=== PATIENT | male | born 1980 | race Caucasian/White ===

== ENCOUNTER 2016-11-27 00:23 | Inpatient (IN) | payer OTHER ==
[~2016-11-27] VITALS: Ht 185.4 cm; Wt 86.3 kg
[2016-11-27 02:00] LABS: BASOPHILS # (AUTO) 0.07 K/uL (0.00-0.20); BASOPHILS % (AUTO) 0.5 % (0.0-2.0); EOSINOPHILS # (AUTO) 0.06 K/uL (0.00-0.70); EOSINOPHILS % (AUTO) 0.48 % (1.0-6.0); HEMOGLOBIN 12.2 g/dL (13.5-17.5); LYMPHOCYTES # (AUTO) 1.4 K/uL (1.0-4.8); LYMPHOCYTES % (AUTO) 10.8 % (22.0-44.0); MEAN CORPUSCULAR HEMOGLOBIN 28.3 pg (26.0-34.0); MEAN CORPUSCULAR HGB CONC 32.9 G/dL (31.0-37.0); MEAN CORPUSCULAR VOLUME 86 fL (80-100); MONOCYTES # (AUTO) 0.6 K/uL (0.1-1.0); MONOCYTES % (AUTO) 4.8 % (2.0-9.0); NEUTROPHILS # (AUTO) 10.5 K/uL (1.8-7.7); NEUTROPHILS % (AUTO) 83.4 % (40.0-70.0); PLATELET COUNT (AUTO) 241 K/uL (150-450); RED CELL DISTRIBUTION WIDTH 13.2 % (11.5-14.5); WHITE BLOOD COUNT (AUTO) 12.5 K/uL (4.5-11.0)
[2016-11-27 02:07] LABS: ANION GAP 7 mmol/L (8-16); CALCIUM, TOTAL 9.4 mg/dL (8.8-10.5); CARBON DIOXIDE 29 mmol/L (22-29); CHLORIDE 100 mmol/L (98-107); CREATININE 1.08 mg/dL (0.60-1.30); GLOMERULAR FILTR. RATE CALC > 60 mL/min (>60); SODIUM SERUM 136 mmol/L (136-145); UREA NITROGEN, BLOOD 19 mg/dL (7-18)
[2016-11-27 02:12] LABS: ALANINE AMINOTRANSFERASE 35 U/L (12-78); ALBUMIN 3.6 g/dL (3.4-5.0); ASPARTATE AMINOTRANSFERASE 21 U/L (15-37); BILIRUBIN,TOTAL 0.6 mg/dL (0.1-1.0)
[2016-11-27 02:31] LABS: LACTIC ACID 1.3 mmol/L (0.4-2.0)
[2016-11-27] MEDS ORDERED: HYDROmorphone 2 MG/ML SYRINGE IVP ONE (03:45)
[2016-11-27] MEDS ORDERED: VANCOMYCIN HCL 1 GM/D5% WATER 200 ML IV ONE ×2 (03:45→10:00)
[2016-11-27] MEDS ORDERED: ONDANSETRON HCL 4 MG/2 ML VIAL IVP ONE ×2 (03:45→12:00)
[2016-11-27] MEDS ORDERED: LORazepam 2 MG/ML VIAL IVP ONE (04:45)
[2016-11-27] MEDS ORDERED: 0.9% SODIUM CHLORIDE 10 ML SYRINGE IVP PRN (05:30)
[2016-11-27] MEDS ORDERED: POTASSIUM CHL 20 MEQ/D5-0.45NS 1,000 ML IV ONE (05:30)
[2016-11-27] MEDS ORDERED: ONDANSETRON HCL 4 MG/2 ML VIAL IVP PRN ×3 (05:30→13:15)
[2016-11-27] MEDS ORDERED: SODIUM CHLORIDE 0.9% 100 ML ONE (05:31)
[2016-11-27] MEDS ORDERED: IOVERSOL 350 MG/ML 100 ML VIAL ONE (05:31)
[2016-11-27] MEDS ORDERED: IPRATROPIUM BROMIDE 0.5 MG/2.5 ML NEB SOLUTION NEB PRN (09:15)
[2016-11-27] MEDS ORDERED: ZOLPIDEM TARTRATE 5 MG TABLET PO PRN (09:15)
[2016-11-27] MEDS ORDERED: HYDROCODONE/ACETAMINOPHEN 5-325 MG TABLET PO PRN (09:15)
[2016-11-27] MEDS ORDERED: ALBUTEROL SULFATE 2.5 MG/0.5 ML NEB SOLUTION NEB PRN ×2 (09:15→13:15)
[2016-11-27] MEDS ORDERED: BISACODYL 10 MG RECTAL RECTAL SUPPOSITORY PR PRN ×2 (09:15→13:15)
[2016-11-27] MEDS ORDERED: MORPHINE SULFATE 4 MG/ML SYRINGE IVP PRN (09:15)
[2016-11-27] MEDS ORDERED: MAGNESIUM HYDROXIDE SUSPENSION 30 ML UDCUP PO PRN ×2 (09:15→13:15)
[2016-11-27] MEDS ORDERED: ACETAMINOPHEN 325 MG TABLET PO PRN ×2 (09:15→13:15)
[2016-11-27] MEDS ORDERED: RINGERS SOLUTION,LACTATED 1,000 ML IV ONE (09:45)
[2016-11-27] MEDS ORDERED: SODIUM CHLORIDE 0.9% 1,000 ML IV ONE ×2 (09:45→13:15)
[2016-11-27 09:48] VITALS: BP 130/90
[2016-11-27] MEDS ORDERED: FentaNYL CITRATE-PF 100 MCG/2 ML VIAL IVP ONE (12:00)
[2016-11-27] MEDS ORDERED: METOCLOPRAMIDE HCL 5 MG/ML 2 ML VIAL IVP ONE (12:00)
[2016-11-27] MEDS ORDERED: DEXAMETHASONE SOD PHOS 4 MG/ML VIAL IVP ONE (12:00)
[2016-11-27] MEDS ORDERED: NEOSTIGMINE METHYLSULFATE 1 MG/ML 10 ML VIAL IVP ONE (12:00)
[2016-11-27] MEDS ORDERED: PHENYLEPHRINE HCL 10 MG/ML VIAL IVP ONE (12:00)
[2016-11-27] MEDS ORDERED: LIDOCAINE HCL/PF 2% 5 ML VIAL INJ ONE (12:00)
[2016-11-27] MEDS ORDERED: MIDAZOLAM HCL 2 MG/2 ML VIAL IVP ONE (12:00)
[2016-11-27] MEDS ORDERED: SUCCINYLCHOLINE CHLORIDE 20 MG/ML 10 ML VIAL IVP ONE (12:00)
[2016-11-27 12:49] VITALS: BP 125/85
[2016-11-27 15:50] VITALS: BP 106/55
[2016-11-27] MEDS: OxyCODONE HCL/ACETAMINOPHEN 5-325 MG TABLET PO PRN ×2 (16:36→16:41)
[2016-11-27] MEDS: HEPARIN SODIUM,PORCINE 5,000 UNITS/ML VIAL SQ SCH (16:37)
[2016-11-27] MEDS: MORPHINE SULFATE 2 MG/ML SYRINGE IVP PRN ×2 (16:40→20:30)
[2016-11-27 20:02] VITALS: BP 131/76
[2016-11-27] MEDS: DOCUSATE SODIUM 100 MG CAPSULE PO SCH (20:30)
[2016-11-27] MEDS ORDERED: DOCUSATE SODIUM 100 MG CAPSULE PO SCH (21:00)
[2016-11-27 23:52] VITALS: BP 131/75
[2016-11-28] MEDS: HEPARIN SODIUM,PORCINE 5,000 UNITS/ML VIAL SQ SCH ×3 (00:41→16:13)
[2016-11-28] MEDS: MORPHINE SULFATE 2 MG/ML SYRINGE IVP PRN ×3 (00:41→22:01)
[2016-11-28 05:40] VITALS: BP 137/85
[2016-11-28 06:38] LABS: BASOPHILS % (AUTO) 0.3 % (0.0-2.0); EOSINOPHILS % (AUTO) 0.4 % (1.0-6.0); HEMATOCRIT 32.7 % (41-53); HEMOGLOBIN 10.9 g/dL (13.5-17.5); LYMPHOCYTES # (AUTO) 1.7 K/uL (1.0-4.8); LYMPHOCYTES % (AUTO) 15.1 % (22.0-44.0); MEAN CORPUSCULAR HEMOGLOBIN 28.9 pg (26.0-34.0); MEAN CORPUSCULAR HGB CONC 33.3 G/dL (31.0-37.0); MEAN CORPUSCULAR VOLUME 87 fL (80-100); MONOCYTES # (AUTO) 0.9 K/uL (0.1-1.0); MONOCYTES % (AUTO) 7.3 % (2.0-9.0); NEUTROPHILS # (AUTO) 8.9 K/uL (1.8-7.7); NEUTROPHILS % (AUTO) 76.9 % (40.0-70.0); PLATELET COUNT (AUTO) 279 K/uL (150-450); RED BLOOD CELL COUNT(AUTO) 3.77 MIL/uL (4.50-5.90); RED CELL DISTRIBUTION WIDTH 13.3 % (11.5-14.5); WHITE BLOOD COUNT (AUTO) 11.6 K/uL (4.5-11.0)
[2016-11-28 06:54] LABS: ANION GAP 7 mmol/L (8-16); CALCIUM, TOTAL 8.8 mg/dL (8.8-10.5); CARBON DIOXIDE 29 mmol/L (22-29); CHLORIDE 101 mmol/L (98-107); CREATININE 0.99 mg/dL (0.60-1.30); GLOMERULAR FILTR. RATE CALC > 60 mL/min (>60); POTASSIUM 3.8 mmol/L (3.5-5.1); SODIUM SERUM 137 mmol/L (136-145); UREA NITROGEN, BLOOD 13 mg/dL (7-18)
[2016-11-28 07:10] VITALS: BP 149/90
[2016-11-28] MEDS: OxyCODONE HCL/ACETAMINOPHEN 5-325 MG TABLET PO PRN ×3 (08:04→19:42)
[2016-11-28] MEDS: DOCUSATE SODIUM 100 MG CAPSULE PO SCH ×2 (08:04→20:32)
[2016-11-28] MEDS: PANTOPRAZOLE SODIUM 40 MG DR TABLET PO SCH (08:05)
[2016-11-28] MEDS ORDERED: PANTOPRAZOLE SODIUM 40 MG/VIAL IVP SCH (09:00)
[2016-11-28] MEDS ORDERED: VANCOMYCIN HCL 1.5 GM in DEXTROSE 5%-WATER 250 ML IV ONE (12:00)
[2016-11-28 15:20] VITALS: BP 136/77
[2016-11-28 20:25] VITALS: BP 119/78
[2016-11-28] MEDS: VANCOMYCIN HCL 1.25 GM in DEXTROSE 5%-WATER 250 ML IV SCH (22:54)
[2016-11-29 00:26] VITALS: BP 128/83
[2016-11-29 04:35] VITALS: BP 117/66
[2016-11-29 06:42] LABS: ANION GAP 7 mmol/L (8-16); CALCIUM, TOTAL 8.3 mg/dL (8.8-10.5); CARBON DIOXIDE 29 mmol/L (22-29); CHLORIDE 105 mmol/L (98-107); CREATININE 1.02 mg/dL (0.60-1.30); GLOMERULAR FILTR. RATE CALC > 60 mL/min (>60); POTASSIUM 3.8 mmol/L (3.5-5.1); SODIUM SERUM 141 mmol/L (136-145); UREA NITROGEN, BLOOD 15 mg/dL (7-18)
[2016-11-29] MEDS: VANCOMYCIN HCL 1.25 GM in DEXTROSE 5%-WATER 250 ML IV SCH (06:44)
[2016-11-29 08:01] VITALS: BP 121/73
[2016-11-29] MEDS: HEPARIN SODIUM,PORCINE 5,000 UNITS/ML VIAL SQ SCH ×2 (08:19)
[2016-11-29] MEDS: DOCUSATE SODIUM 100 MG CAPSULE PO SCH (08:19)
[2016-11-29] MEDS: PANTOPRAZOLE SODIUM 40 MG DR TABLET PO SCH (08:19)
[2016-11-29] MEDS: OxyCODONE HCL/ACETAMINOPHEN 5-325 MG TABLET PO PRN (08:20)
[2016-11-29] MEDS ORDERED: KEFLEX PO (10:56)
[2016-11-29] MEDS ORDERED: CEPH500 PO (11:01)
[2016-11-29] MEDS ORDERED: BACTDSB PO (11:02)
[2016-11-29] MEDS ORDERED: TRAM50TA4 PO (11:03)
== END 2016-11-29 13:30 | disposition home or self-care (01) | DRG 364 ==
LOC: EMS 00:24 → 6N 05:31
PROVIDERS: ADMIT Hospitalist; ATTEND Hospitalist
PROC: 02HV33Z Insertion of Infusion Device into Superior Vena Cava, Percutaneous Approach (ICD-10-PCS; 2016-11-27)
PROC: 0J940ZZ Drainage of Right Neck Subcutaneous Tissue and Fascia, Open Approach (ICD-10-PCS; principal; 2016-11-27 09:50)
DX: L02.11 Cutaneous abscess of neck (principal); F11.10 Opioid abuse, uncomplicated; L03.221 Cellulitis of neck; F17.210 Nicotine dependence, cigarettes, uncomplicated; F15.10 Other stimulant abuse, uncomplicated; F12.10 Cannabis abuse, uncomplicated
CPT/HCPCS: 72126; 83605; 87040; 87070; 87081; 87205; G0480; J0330; J1100; J1170; J1644; J2060; J2250; J2270; J2370; J2405; J2765; J3010; J3370; J3480; J3490; J7030; J7050; J7060; J7120

== ENCOUNTER 2018-07-11 08:12 | Inpatient (IN) | payer MEDICAID ==
[~2018-07-11] VITALS: Ht 185.4 cm; Wt 83.9 kg
[~2018-07-11 08:12] MED LIST: BACTDSB PO; CEPH500 PO; KEFLEX PO; TRAM50TA4 PO
[2018-07-11] MEDS ORDERED: 0.9% SODIUM CHLORIDE 10 ML SYRINGE IVP PRN (09:30)
[2018-07-11] MEDS ORDERED: PIPERACILLIN/TAZO 3.375 GM/D5W 50 ML IV ONE (10:15)
[2018-07-11] MEDS ORDERED: HYDROCODONE/ACETAMINOPHEN 5-325 MG TABLET PO ONE ×2 (10:15→13:15)
[2018-07-11] MEDS ORDERED: KETOROLAC TROMETHAMINE 30 MG/ML VIAL IVP ONE (10:15)
[2018-07-11] MEDS ORDERED: VANCOMYCIN HCL 1 GM/D5% WATER 200 ML IV ONE (10:15)
[2018-07-11] MEDS ORDERED: IOVERSOL 350 MG/ML 150 ML VIAL ONE (10:17)
[2018-07-11] MEDS ORDERED: SODIUM CHLORIDE 0.9% 100 ML ONE (10:18)
[2018-07-11] MEDS ORDERED: IOVERSOL 350 MG/ML 100 ML VIAL ONE ×2 (10:19→11:39)
[2018-07-11 10:27] LABS: BASOPHILS % (AUTO) 0.2 % (0.0-2.0); EOSINOPHILS % (AUTO) 0.1 % (1.0-6.0); HEMATOCRIT 36.6 % (41-53); HEMOGLOBIN 12.2 g/dL (13.5-17.5); MEAN CORPUSCULAR HEMOGLOBIN 27.6 pg (26.0-34.0); MEAN CORPUSCULAR HGB CONC 33.4 G/dL (31.0-37.0); MEAN CORPUSCULAR VOLUME 83 fL (80-100); MONOCYTES # (AUTO) 1.7 K/uL (0.1-1.0); MONOCYTES % (AUTO) 10.2 % (2.0-9.0); NEUTROPHILS # (AUTO) 14.3 K/uL (1.8-7.7); NEUTROPHILS % (AUTO) 83.5 % (40.0-70.0); PLATELET COUNT (AUTO) 201 K/uL (150-450); RED BLOOD CELL COUNT(AUTO) 4.43 MIL/uL (4.50-5.90); RED CELL DISTRIBUTION WIDTH 14.7 % (11.5-14.5)
[2018-07-11 10:38] LABS: PROTHROMBIN TIME 10.8 SEC (9.4-11.6)
[2018-07-11 10:46] LABS: LACTIC ACID 1.6 mmol/L (0.4-2.0)
[2018-07-11 10:51] LABS: B-TYPE NATRIURETIC PEPTIDE 10 pg/mL (0-100)
[2018-07-11 11:01] LABS: ALKALINE PHOSPHATASE 88 U/L (46-116); ASPARTATE AMINOTRANSFERASE 156 U/L (15-37); BILIRUBIN,TOTAL 0.9 mg/dL (0.1-1.0); CALCIUM, TOTAL 8.8 mg/dL (8.8-10.5); CREATININE 1.24 mg/dL (0.60-1.30); GLOMERULAR FILTR. RATE CALC > 60 mL/min (>60); GLUCOSE,RANDOM 114 mg/dL (70-110); TOTAL PROTEIN, SERUM 7.3 g/dL (6.4-8.2); UREA NITROGEN, BLOOD 21 mg/dL (7-18)
[2018-07-11 11:36] LABS: APPEARANCE,URINE CLOUDY (CLEAR); GLUCOSE, URINE (UA) NEGATIVE (NEGATIVE); KETONES,URINE NEGATIVE (NEGATIVE); LEUKOCYTE ESTERASE ,URINE TRACE (NEGATIVE); NITRATE,URINE NEGATIVE (NEGATIVE); OCCULT BLOOD,URINE MODERATE (NEGATIVE); PROTEIN,URINE SEE CONFIRM (NEGATIVE)
[2018-07-11 11:39] LABS: BILIRUBIN,URINE PRELIM. POSITIVE (NEGATIVE)
[2018-07-11 11:48] LABS: SULFOSALICYLIC ACID,URINE 1+ (Negative)
[2018-07-11 11:51] LABS: BACTERIA,URINE Few /HPF (None Seen); SQUAMOUS EPITHELIAL CELL,UR Few /LPF (None Seen)
[2018-07-11 12:20] LABS: ALANINE AMINOTRANSFERASE 67 U/L (12-78); CARBON DIOXIDE 26 mmol/L (22-29); CHLORIDE 90 mmol/L (98-107); CREATINE KINASE, TOTAL ONLY 1683 U/L (39-308); POTASSIUM 4.4 mmol/L (3.5-5.1)
[2018-07-11 12:21] LABS: ALBUMIN 2.1 g/dL (3.4-5.0); ANION GAP 8 mmol/L (8-16)
[2018-07-11 12:24] LABS: SODIUM SERUM 124 mmol/L (136-145)
[2018-07-11] MEDS ORDERED: SODIUM CHLORIDE 0.9% 1,000 ML IV ONE (12:30)
[2018-07-11] MEDS ORDERED: MAGNESIUM HYDROXIDE SUSPENSION 30 ML UDCUP PO PRN (14:15)
[2018-07-11] MEDS ORDERED: ONDANSETRON HCL 4 MG/2 ML VIAL IVP PRN (14:15)
[2018-07-11] MEDS: SODIUM CHLORIDE 0.9% 1,000 ML IV SCH ×2 (14:24→22:30)
[2018-07-11] MEDS ORDERED: VANCOMYCIN HCL 500 MG in DEXTROSE 5%-WATER 100 ML IV ONE (14:30)
[2018-07-11] MEDS: PIPERACILLIN/TAZO 3.375 GM/D5W 50 ML IV SCH ×2 (15:14→21:22)
[2018-07-11 17:40] VITALS: BP 96/63
[2018-07-11 19:50] VITALS: BP 116/48
[2018-07-11] MEDS ORDERED: DOCUSATE SODIUM 100 MG CAPSULE PO SCH (21:00)
[2018-07-11] MEDS: ACETAMINOPHEN 325 MG TABLET PO PRN (21:22)
[2018-07-11] MEDS: MORPHINE SULFATE 4 MG/ML SYRINGE IVP PRN (22:35)
[2018-07-11] MEDS ORDERED: VANCOMYCIN HCL 1.25 GM in DEXTROSE 5%-WATER 250 ML IV ONE (23:00)
[2018-07-11 23:59] VITALS: BP 94/54
[2018-07-12] MEDS: PIPERACILLIN/TAZO 3.375 GM/D5W 50 ML IV SCH ×3 (03:06→15:39)
[2018-07-12] MEDS: MORPHINE SULFATE 4 MG/ML SYRINGE IVP PRN ×2 (03:16→15:51)
[2018-07-12 03:30] VITALS: BP 114/65
[2018-07-12] MEDS ORDERED: RINGERS SOLUTION,LACTATED 1,000 ML IV ONE ×2 (05:48→06:00)
[2018-07-12] MEDS ORDERED: ACETAMINOPHEN 1000 MG/ISO-OSM 100 ML IV ONE (06:37)
[2018-07-12] MEDS ORDERED: BUPIVACAINE HCL/PF 0.5% 30 ML VIAL ONE (06:37)
[2018-07-12] MEDS ORDERED: DEXAMETHASONE SOD PHOS 4 MG/ML VIAL ONE (06:37)
[2018-07-12] MEDS ORDERED: SODIUM CL IRRIG SOLN BAG 3,000 ML IRRIG ONE (06:46)
[2018-07-12] MEDS ORDERED: BENZOCAINE/MENTHOL LOZENGE PO PRN (07:30)
[2018-07-12] MEDS ORDERED: DiphenhydrAMINE HCL 50 MG/ML VIAL IVP PRN (07:30)
[2018-07-12] MEDS ORDERED: MAG HYDROX/AL HYDROX/SIMETH 30 ML SUSP UDCUP PO PRN (07:30)
[2018-07-12] MEDS ORDERED: VANCOMYCIN HCL 1.25 GM in DEXTROSE 5%-WATER 250 ML IV ONE (08:00)
[2018-07-12] MEDS ORDERED: MEPERIDINE-PF 25 MG/ML VIAL IVP PRN (08:30)
[2018-07-12] MEDS ORDERED: HYDROmorphone 2 MG/ML SYRINGE IVP PRN (08:30)
[2018-07-12] MEDS ORDERED: FentaNYL CITRATE-PF 100 MCG/2 ML VIAL IVP PRN (08:30)
[2018-07-12] MEDS ORDERED: ACETAMINOPHEN 1000 MG/ISO-OSM 100 ML IV PRN (09:00)
[2018-07-12] MEDS: OxyCODONE HCL/ACETAMINOPHEN 10-325 MG TABLET PO PRN ×3 (09:16→22:47)
[2018-07-12] MEDS: PANTOPRAZOLE SODIUM 40 MG DR TABLET PO SCH (09:16)
[2018-07-12] MEDS: DOCUSATE SODIUM 100 MG CAPSULE PO SCH ×2 (09:16→20:12)
[2018-07-12 10:12] VITALS: BP 139/71
[2018-07-12] MEDS: SODIUM CHLORIDE 0.9% 1,000 ML IV SCH (11:43)
[2018-07-12 11:46] VITALS: BP 125/78
[2018-07-12] MEDS: ACETAMINOPHEN 500 MG TABLET PO SCH ×2 (13:30→20:13)
[2018-07-12 14:42] VITALS: BP 142/89
[2018-07-12 15:52] VITALS: BP 96/66
[2018-07-12] MEDS: KETOROLAC TROMETHAMINE 30 MG/ML VIAL IVP SCH (17:16)
[2018-07-12 19:47] VITALS: BP 99/59
[2018-07-12] MEDS: CYCLOBENZAPRINE HCL 10 MG TABLET PO PRN (20:12)
[2018-07-12] MEDS: VANCOMYCIN HCL 1.25 GM in DEXTROSE 5%-WATER 250 ML IV SCH (20:13)
[2018-07-13] VITALS (7 sets, daily range): BP systolic 99–126; BP diastolic 49–60
[2018-07-13] MEDS: PIPERACILLIN/TAZO 3.375 GM/D5W 50 ML IV SCH ×5 (00:45→22:04)
[2018-07-13] MEDS: SODIUM CHLORIDE 0.9% 1,000 ML IV SCH ×2 (00:46→06:15)
[2018-07-13] MEDS: KETOROLAC TROMETHAMINE 30 MG/ML VIAL IVP SCH ×5 (01:16→23:35)
[2018-07-13] MEDS: ACETAMINOPHEN 500 MG TABLET PO SCH ×4 (01:30→17:49)
[2018-07-13] MEDS ORDERED: DEXAMETHASONE SOD PHOS 4 MG/ML VIAL IVP ONE (05:22)
[2018-07-13] MEDS ORDERED: PROPOFOL 1% 20 ML VIAL IVP ONE (05:22)
[2018-07-13] MEDS ORDERED: KETOROLAC TROMETHAMINE 60 MG/2 ML VIAL IM ONE (05:22)
[2018-07-13] MEDS ORDERED: KETAMINE HCL 50 MG/ML 10 ML VIAL IVP ONE (05:22)
[2018-07-13] MEDS ORDERED: ONDANSETRON HCL 4 MG/2 ML VIAL IVP ONE (05:22)
[2018-07-13] MEDS ORDERED: MIDAZOLAM HCL 2 MG/2 ML VIAL IVP ONE (05:22)
[2018-07-13] MEDS ORDERED: LIDOCAINE/PF 2% 5 ML VIAL IM ONE (05:22)
[2018-07-13] MEDS: OxyCODONE HCL/ACETAMINOPHEN 10-325 MG TABLET PO PRN ×2 (05:36→10:09)
[2018-07-13] MEDS: VANCOMYCIN HCL 1.25 GM in DEXTROSE 5%-WATER 250 ML IV SCH ×2 (10:09→20:25)
[2018-07-13] MEDS: PANTOPRAZOLE SODIUM 40 MG DR TABLET PO SCH (10:09)
[2018-07-13] MEDS: DOCUSATE SODIUM 100 MG CAPSULE PO SCH ×2 (10:09→20:25)
[2018-07-13] MEDS: MORPHINE SULFATE 4 MG/ML SYRINGE IVP PRN ×2 (11:32→17:08)
[2018-07-13] MEDS ORDERED: SODIUM CHLORIDE 0.9% 1,000 ML IV ONE (11:45)
[2018-07-13 14:50] LABS: ANION GAP 7 mmol/L (8-16); CALCIUM, TOTAL 8.2 mg/dL (8.8-10.5); CARBON DIOXIDE 26 mmol/L (22-29); CHLORIDE 100 mmol/L (98-107); CREATININE 1.24 mg/dL (0.60-1.30); GLOMERULAR FILTR. RATE CALC > 60 mL/min (>60); GLUCOSE,RANDOM 202 mg/dL (70-110); POTASSIUM 3.5 mmol/L (3.5-5.1); SODIUM SERUM 133 mmol/L (136-145); UREA NITROGEN, BLOOD 30 mg/dL (7-18)
[2018-07-13] MEDS ORDERED: SODIUM BICARBONATE 75 MEQ in SODIUM CHLORIDE 0.45% 1,000 ML IV SCH (15:00)
[2018-07-13 18:15] LABS: CREATININE,URINE RANDOM 99.3 mg/dL (30.0-125.0); PROTEIN,URINE RANDOM 46 mg/dL (0-11.9)
[2018-07-13 18:20] LABS: SODIUM,URINE RANDOM < 5 mmol/l (20-110)
[2018-07-13 18:21] LABS: OSMOLALITY,URINE 660 mOS/kg (50-1200)
[2018-07-13 18:28] LABS: APPEARANCE,URINE CLEAR (CLEAR); GLUCOSE, URINE (UA) 100 mg/dL (NEGATIVE); KETONES,URINE NEGATIVE (NEGATIVE); LEUKOCYTE ESTERASE ,URINE NEGATIVE (NEGATIVE); NITRATE,URINE NEGATIVE (NEGATIVE); OCCULT BLOOD,URINE NEGATIVE (NEGATIVE); PH,URINE 6.5 (5.0-8.0); PROTEIN,URINE NEGATIVE (NEGATIVE)
[2018-07-13 19:50] LABS: BILIRUBIN,URINE PRELIM. POSITIVE (NEGATIVE)
[2018-07-13 19:52] LABS: BACTERIA,URINE Few /HPF (None Seen); RBC,URINE 0-2 /HPF (0-2); SQUAMOUS EPITHELIAL CELL,UR Few /LPF (None Seen); WBC,URINE 0-2 /HPF (0-5)
[2018-07-14] MEDS: ACETAMINOPHEN 500 MG TABLET PO SCH ×4 (02:07→19:30)
[2018-07-14] MEDS: PIPERACILLIN/TAZO 3.375 GM/D5W 50 ML IV SCH ×4 (04:24→21:45)
[2018-07-14 05:13] VITALS: BP 121/77
[2018-07-14] MEDS: KETOROLAC TROMETHAMINE 30 MG/ML VIAL IVP SCH ×4 (05:37→23:40)
[2018-07-14] MEDS: MORPHINE SULFATE 4 MG/ML SYRINGE IVP PRN ×2 (07:00→22:19)
[2018-07-14 07:40] VITALS: BP 122/61
[2018-07-14] MEDS: VANCOMYCIN HCL 1.25 GM in DEXTROSE 5%-WATER 250 ML IV SCH ×2 (08:16→19:51)
[2018-07-14] MEDS: PANTOPRAZOLE SODIUM 40 MG DR TABLET PO SCH (08:16)
[2018-07-14] MEDS: DOCUSATE SODIUM 100 MG CAPSULE PO SCH ×2 (08:17→19:51)
[2018-07-14] MEDS: CYCLOBENZAPRINE HCL 10 MG TABLET PO PRN (08:35)
[2018-07-14] MEDS: OxyCODONE HCL/ACETAMINOPHEN 10-325 MG TABLET PO PRN (08:36)
[2018-07-14] MEDS: HYDROmorphone 2 MG/ML SYRINGE IVP PRN ×3 (10:46→19:51)
[2018-07-14 11:41] VITALS: BP 120/66
[2018-07-14] MEDS: MULTIVITAMINS WITH MINERALS, THERAPEUTIC TABLET PO SCH (15:07)
[2018-07-14 15:45] VITALS: BP 118/63
[2018-07-14 19:54] VITALS: BP 138/68
[2018-07-14 23:35] VITALS: BP 136/79
[2018-07-14] MEDS: ZOLPIDEM TARTRATE 10 MG TABLET PO PRN (23:40)
[2018-07-15] MEDS: ACETAMINOPHEN 500 MG TABLET PO SCH ×5 (01:24→23:30)
[2018-07-15] MEDS: HYDROmorphone 2 MG/ML SYRINGE IVP PRN ×5 (02:25→22:31)
[2018-07-15] MEDS: PIPERACILLIN/TAZO 3.375 GM/D5W 50 ML IV SCH ×4 (03:49→22:35)
[2018-07-15] MEDS: MORPHINE SULFATE 4 MG/ML SYRINGE IVP PRN ×4 (03:56→20:29)
[2018-07-15] MEDS ORDERED: SODIUM CHLORIDE 0.9% 250 ML IV ONE (04:40)
[2018-07-15 05:03] VITALS: BP 138/88
[2018-07-15] MEDS: KETOROLAC TROMETHAMINE 30 MG/ML VIAL IVP SCH (05:27)
[2018-07-15] MEDS: MULTIVITAMINS WITH MINERALS, THERAPEUTIC TABLET PO SCH (08:11)
[2018-07-15] MEDS: PANTOPRAZOLE SODIUM 40 MG DR TABLET PO SCH (08:11)
[2018-07-15] MEDS: DOCUSATE SODIUM 100 MG CAPSULE PO SCH ×2 (08:12→20:49)
[2018-07-15] MEDS: VANCOMYCIN HCL 1.25 GM in DEXTROSE 5%-WATER 250 ML IV SCH ×2 (08:12→20:34)
[2018-07-15 08:15] VITALS: BP 133/72
[2018-07-15 11:16] VITALS: BP 114/88
[2018-07-15 15:26] VITALS: BP 135/81
[2018-07-15 19:32] VITALS: BP 142/78
[2018-07-15 23:24] VITALS: BP 118/59
[2018-07-16] MEDS: ACETAMINOPHEN 500 MG TABLET PO SCH ×4 (01:30→19:30)
[2018-07-16 04:35] VITALS: BP 122/60
[2018-07-16] MEDS: PIPERACILLIN/TAZO 3.375 GM/D5W 50 ML IV SCH ×4 (04:50→21:25)
[2018-07-16] MEDS: HYDROmorphone 2 MG/ML SYRINGE IVP PRN ×5 (06:00→21:25)
[2018-07-16] MEDS: VANCOMYCIN HCL 1.25 GM in DEXTROSE 5%-WATER 250 ML IV SCH ×2 (08:20→19:53)
[2018-07-16] MEDS: PANTOPRAZOLE SODIUM 40 MG DR TABLET PO SCH (08:20)
[2018-07-16] MEDS: MULTIVITAMINS WITH MINERALS, THERAPEUTIC TABLET PO SCH (08:20)
[2018-07-16] MEDS: DOCUSATE SODIUM 100 MG CAPSULE PO SCH ×2 (08:20→19:53)
[2018-07-16] MEDS ORDERED: SODIUM CHLORIDE 0.9% 250 ML IV ONE (08:23)
[2018-07-16] MEDS: MORPHINE SULFATE 4 MG/ML SYRINGE IVP PRN ×3 (08:35→20:22)
[2018-07-16 10:45] LABS: BASOPHILS % (AUTO) 0.2 % (0.0-2.0); EOSINOPHILS % (AUTO) 0.1 % (1.0-6.0); HEMATOCRIT 30.6 % (41-53); HEMOGLOBIN 10.2 g/dL (13.5-17.5); LYMPHOCYTES # (AUTO) 1.6 K/uL (1.0-4.8); LYMPHOCYTES % (AUTO) 9.3 % (22.0-44.0); MEAN CORPUSCULAR HEMOGLOBIN 26.9 pg (26.0-34.0); MEAN CORPUSCULAR HGB CONC 33.2 G/dL (31.0-37.0); MEAN CORPUSCULAR VOLUME 81 fL (80-100); MONOCYTES # (AUTO) 0.5 K/uL (0.1-1.0); NEUTROPHILS # (AUTO) 14.7 K/uL (1.8-7.7); PLATELET COUNT (AUTO) 407 K/uL (150-450); RED BLOOD CELL COUNT(AUTO) 3.78 MIL/uL (4.50-5.90); RED CELL DISTRIBUTION WIDTH 14.9 % (11.5-14.5)
[2018-07-16] MEDS: OxyCODONE HCL/ACETAMINOPHEN 10-325 MG TABLET PO PRN (10:45)
[2018-07-16 10:46] LABS: NEUTROPHILS % (AUTO) 87.4 % (40.0-70.0)
[2018-07-16 11:18] LABS: ANION GAP 8 mmol/L (8-16); CARBON DIOXIDE 27 mmol/L (22-29); CHLORIDE 105 mmol/L (98-107); CREATININE 1.04 mg/dL (0.60-1.30); GLOMERULAR FILTR. RATE CALC > 60 mL/min (>60); GLUCOSE,RANDOM 84 mg/dL (70-110); PHOSPHORUS 4.4 mg/dL (2.5-4.9); POTASSIUM 3.5 mmol/L (3.5-5.1); SODIUM SERUM 140 mmol/L (136-145); UREA NITROGEN, BLOOD 15 mg/dL (7-18); VANCOMYCIN,RANDOM 28.9 mcg/mL (25.0-50.0)
[2018-07-16 12:06] VITALS: BP 121/69
[2018-07-16] MEDS: CYCLOBENZAPRINE HCL 10 MG TABLET PO PRN (15:23)
[2018-07-16 16:16] VITALS: BP 128/72
[2018-07-16] MEDS: ZOLPIDEM TARTRATE 10 MG TABLET PO PRN (20:03)
[2018-07-16 20:12] VITALS: BP 134/77
[2018-07-16 23:09] VITALS: BP 130/74
[2018-07-17] MEDS ORDERED: SODIUM CHLORIDE 0.9% 500 ML IV ONE (00:18)
[2018-07-17] MEDS: ACETAMINOPHEN 500 MG TABLET PO SCH ×4 (01:30→17:52)
[2018-07-17] MEDS: HYDROmorphone 2 MG/ML SYRINGE IVP PRN ×4 (02:35→20:35)
[2018-07-17] MEDS: PIPERACILLIN/TAZO 3.375 GM/D5W 50 ML IV SCH ×4 (03:38→20:34)
[2018-07-17 05:36] VITALS: BP 110/60
[2018-07-17 07:45] VITALS: BP 129/60
[2018-07-17] MEDS: DOCUSATE SODIUM 100 MG CAPSULE PO SCH ×2 (08:39→20:34)
[2018-07-17] MEDS: PANTOPRAZOLE SODIUM 40 MG DR TABLET PO SCH (08:39)
[2018-07-17] MEDS: MULTIVITAMINS WITH MINERALS, THERAPEUTIC TABLET PO SCH (08:40)
[2018-07-17] MEDS: ACETAMINOPHEN 325 MG TABLET PO PRN ×2 (08:40→08:41)
[2018-07-17] MEDS: VANCOMYCIN HCL 1.25 GM in DEXTROSE 5%-WATER 250 ML IV SCH (11:38)
[2018-07-17] MEDS: MORPHINE SULFATE 4 MG/ML SYRINGE IVP PRN ×2 (11:44→16:46)
[2018-07-17] MEDS: CefTRIAXone 1 GM/DEXTROSE 50 ML IV SCH (13:38)
[2018-07-17 15:47] VITALS: BP 125/66
[2018-07-17 19:12] LABS: APPEARANCE,URINE CLEAR (CLEAR); BILIRUBIN,URINE NEGATIVE (NEGATIVE); GLUCOSE, URINE (UA) NEGATIVE (NEGATIVE); KETONES,URINE NEGATIVE (NEGATIVE); LEUKOCYTE ESTERASE ,URINE NEGATIVE (NEGATIVE); NITRATE,URINE NEGATIVE (NEGATIVE); OCCULT BLOOD,URINE SMALL (NEGATIVE); PROTEIN,URINE NEGATIVE (NEGATIVE); UROBILINOGEN,URINE 0.2 mg/dL (<=1.0)
[2018-07-17 19:22] LABS: RBC,URINE 0-2 /HPF (0-2); WBC,URINE 0-2 /HPF (0-5)
[2018-07-17 19:23] LABS: BACTERIA,URINE Rare /HPF (None Seen); SQUAMOUS EPITHELIAL CELL,UR Rare /LPF (None Seen)
[2018-07-17 19:56] VITALS: BP 124/56
[2018-07-17 23:35] VITALS: BP 131/87
[2018-07-18] MEDS: ACETAMINOPHEN 500 MG TABLET PO SCH ×3 (01:30→13:30)
[2018-07-18] MEDS: PIPERACILLIN/TAZO 3.375 GM/D5W 50 ML IV SCH ×4 (03:36→21:05)
[2018-07-18] MEDS: HYDROmorphone 2 MG/ML SYRINGE IVP PRN ×5 (03:36→21:12)
[2018-07-18 04:00] VITALS: BP 140/77
[2018-07-18 07:25] VITALS: BP 134/78
[2018-07-18] MEDS: DOCUSATE SODIUM 100 MG CAPSULE PO SCH ×2 (09:16→21:00)
[2018-07-18] MEDS: ACETAMINOPHEN 325 MG TABLET PO PRN (09:16)
[2018-07-18] MEDS: MULTIVITAMINS WITH MINERALS, THERAPEUTIC TABLET PO SCH (09:16)
[2018-07-18] MEDS: PANTOPRAZOLE SODIUM 40 MG DR TABLET PO SCH (09:16)
[2018-07-18 11:19] VITALS: BP 142/76
[2018-07-18] MEDS: CefTRIAXone 1 GM/DEXTROSE 50 ML IV SCH (14:00)
[2018-07-18 16:07] VITALS: BP 138/74
[2018-07-18] MEDS: MORPHINE SULFATE 4 MG/ML SYRINGE IVP PRN (18:01)
[2018-07-18 19:40] VITALS: BP 136/74
[2018-07-18 23:30] VITALS: BP 139/75
[2018-07-19] MEDS: ZOLPIDEM TARTRATE 10 MG TABLET PO PRN (00:14)
[2018-07-19] MEDS: OxyCODONE HCL/ACETAMINOPHEN 10-325 MG TABLET PO PRN (00:15)
[2018-07-19 03:30] VITALS: BP 134/76
[2018-07-19] MEDS: PIPERACILLIN/TAZO 3.375 GM/D5W 50 ML IV SCH ×4 (04:27→23:36)
[2018-07-19] MEDS: HYDROmorphone 2 MG/ML SYRINGE IVP PRN ×3 (04:32→16:10)
[2018-07-19] MEDS: ACETAMINOPHEN 500 MG TABLET PO SCH ×3 (07:30→18:49)
[2018-07-19 08:10] VITALS: BP 117/70
[2018-07-19] MEDS: DOCUSATE SODIUM 100 MG CAPSULE PO SCH ×2 (09:00→21:00)
[2018-07-19] MEDS: PANTOPRAZOLE SODIUM 40 MG DR TABLET PO SCH (09:11)
[2018-07-19] MEDS: MULTIVITAMINS WITH MINERALS, THERAPEUTIC TABLET PO SCH (09:11)
[2018-07-19 09:34] LABS: BASOPHILS % (AUTO) 0.4 % (0.0-2.0); EOSINOPHILS % (AUTO) 0.7 % (1.0-6.0); HEMOGLOBIN 9.6 g/dL (13.5-17.5); LYMPHOCYTES # (AUTO) 2.8 K/uL (1.0-4.8); LYMPHOCYTES % (AUTO) 16.5 % (22.0-44.0); MEAN CORPUSCULAR HEMOGLOBIN 26.5 pg (26.0-34.0); MEAN CORPUSCULAR HGB CONC 32.2 G/dL (31.0-37.0); MEAN CORPUSCULAR VOLUME 83 fL (80-100); MONOCYTES # (AUTO) 0.9 K/uL (0.1-1.0); MONOCYTES % (AUTO) 5.6 % (2.0-9.0); NEUTROPHILS # (AUTO) 12.9 K/uL (1.8-7.7); NEUTROPHILS % (AUTO) 76.8 % (40.0-70.0); PLATELET COUNT (AUTO) 472 K/uL (150-450); RED BLOOD CELL COUNT(AUTO) 3.64 MIL/uL (4.50-5.90); RED CELL DISTRIBUTION WIDTH 15.3 % (11.5-14.5)
[2018-07-19 09:46] LABS: ANION GAP 11 mmol/L (8-16); CALCIUM, TOTAL 8.6 mg/dL (8.8-10.5); CARBON DIOXIDE 25 mmol/L (22-29); CHLORIDE 104 mmol/L (98-107); GLOMERULAR FILTR. RATE CALC > 60 mL/min (>60); GLUCOSE,RANDOM 109 mg/dL (70-110); POTASSIUM 3.7 mmol/L (3.5-5.1); SODIUM SERUM 140 mmol/L (136-145); UREA NITROGEN, BLOOD 17 mg/dL (7-18)
[2018-07-19] MEDS ORDERED: VANCOMYCIN HCL 1.25 GM in DEXTROSE 5%-WATER 250 ML IV ONE (10:45)
[2018-07-19 11:32] VITALS: BP 99/51
[2018-07-19] MEDS: MORPHINE SULFATE 4 MG/ML SYRINGE IVP PRN ×2 (11:36→20:33)
[2018-07-19] MEDS ORDERED: FLUCONAZOLE 200 MG TABLET PO ONE (12:45)
[2018-07-19] MEDS ORDERED: SODIUM CL IRRIG SOLN BOTTLE 250 ML IRRIG ONE (15:31)
[2018-07-19] MEDS: HYDROmorphone HCL 2 MG TABLET PO PRN (17:36)
[2018-07-19] MEDS: VANCOMYCIN HCL 1.25 GM in DEXTROSE 5%-WATER 250 ML IV SCH (20:38)
[2018-07-19 21:09] VITALS: BP 103/60
[2018-07-20 00:09] VITALS: BP 111/74
[2018-07-20] MEDS ORDERED: SODIUM CHLORIDE 0.9% 250 ML IV ONE (04:31)
[2018-07-20] MEDS: HYDROmorphone HCL 2 MG TABLET PO PRN ×3 (04:47→21:33)
[2018-07-20] MEDS: PIPERACILLIN/TAZO 3.375 GM/D5W 50 ML IV SCH ×4 (04:48→23:57)
[2018-07-20 05:33] VITALS: BP 123/64
[2018-07-20 08:17] VITALS: BP 115/63
[2018-07-20] MEDS: VANCOMYCIN HCL 1.25 GM in DEXTROSE 5%-WATER 250 ML IV SCH ×2 (08:47→20:28)
[2018-07-20] MEDS: MULTIVITAMINS WITH MINERALS, THERAPEUTIC TABLET PO SCH (08:47)
[2018-07-20] MEDS: ACETAMINOPHEN 500 MG TABLET PO SCH ×3 (08:47→17:57)
[2018-07-20] MEDS: PANTOPRAZOLE SODIUM 40 MG DR TABLET PO SCH (08:48)
[2018-07-20] MEDS: MORPHINE SULFATE 4 MG/ML SYRINGE IVP PRN (08:48)
[2018-07-20] MEDS: FLUCONAZOLE 200 MG TABLET PO SCH (08:48)
[2018-07-20] MEDS: DOCUSATE SODIUM 100 MG CAPSULE PO SCH ×2 (08:48→21:00)
[2018-07-20 09:41] LABS: BASOPHILS % (AUTO) 0.6 % (0.0-2.0); EOSINOPHILS % (AUTO) 1.1 % (1.0-6.0); HEMATOCRIT 27.6 % (41-53); HEMOGLOBIN 9.2 g/dL (13.5-17.5); LYMPHOCYTES # (AUTO) 2.3 K/uL (1.0-4.8); LYMPHOCYTES % (AUTO) 15.6 % (22.0-44.0); MEAN CORPUSCULAR HGB CONC 33.2 G/dL (31.0-37.0); MEAN CORPUSCULAR VOLUME 81 fL (80-100); MONOCYTES # (AUTO) 0.6 K/uL (0.1-1.0); MONOCYTES % (AUTO) 4.4 % (2.0-9.0); NEUTROPHILS # (AUTO) 11.4 K/uL (1.8-7.7); NEUTROPHILS % (AUTO) 78.3 % (40.0-70.0); PLATELET COUNT (AUTO) 450 K/uL (150-450); RED CELL DISTRIBUTION WIDTH 15.5 % (11.5-14.5)
[2018-07-20 09:54] LABS: ALANINE AMINOTRANSFERASE 39 U/L (12-78); ALBUMIN 1.6 g/dL (3.4-5.0); ALKALINE PHOSPHATASE 82 U/L (46-116); ANION GAP 5 mmol/L (8-16); ASPARTATE AMINOTRANSFERASE 28 U/L (15-37); BILIRUBIN,TOTAL 0.2 mg/dL (0.1-1.0); CALCIUM, TOTAL 8.1 mg/dL (8.8-10.5); CARBON DIOXIDE 27 mmol/L (22-29); CHLORIDE 106 mmol/L (98-107); CREATININE 1.03 mg/dL (0.60-1.30); GLOMERULAR FILTR. RATE CALC > 60 mL/min (>60); GLUCOSE,RANDOM 96 mg/dL (70-110); POTASSIUM 4.1 mmol/L (3.5-5.1); SODIUM SERUM 138 mmol/L (136-145); TOTAL PROTEIN, SERUM 6.3 g/dL (6.4-8.2); UREA NITROGEN, BLOOD 17 mg/dL (7-18)
[2018-07-20 11:14] VITALS: BP 112/74
[2018-07-20 15:03] VITALS: BP 134/81
[2018-07-20 15:15] LABS: CREATINE KINASE, TOTAL ONLY 38 U/L (39-308)
[2018-07-20] MEDS ORDERED: GADOBUTROL 1 MMOL/ML 10 ML VIAL IVP ONE (15:18)
[2018-07-20] MEDS ORDERED: HYDROmorphone 2 MG/ML SYRINGE IVP ONE (15:45)
[2018-07-20 20:35] VITALS: BP 135/82
[2018-07-20] MEDS: ACETAMINOPHEN 325 MG TABLET PO PRN (21:36)
[2018-07-21] VITALS (7 sets, daily range): BP systolic 116–160; BP diastolic 63–90
[2018-07-21] MEDS: HYDROmorphone HCL 2 MG TABLET PO PRN (03:08)
[2018-07-21] MEDS ORDERED: RINGERS SOLUTION,LACTATED 1,000 ML IV ONE ×2 (05:00→05:01)
[2018-07-21] MEDS: PIPERACILLIN/TAZO 3.375 GM/D5W 50 ML IV SCH ×4 (05:26→22:15)
[2018-07-21] MEDS ORDERED: SODIUM CL IRRIG SOLN BAG 3,000 ML IRRIG ONE (05:38)
[2018-07-21] MEDS ORDERED: MEPERIDINE-PF 25 MG/ML VIAL IVP PRN (06:45)
[2018-07-21] MEDS ORDERED: HYDROmorphone 2 MG/ML SYRINGE IVP PRN (06:45)
[2018-07-21] MEDS ORDERED: MEPERIDINE-PF 25 MG/ML VIAL ONE (07:21)
[2018-07-21] MEDS ORDERED: HYDROmorphone 2 MG/ML SYRINGE ONE (07:21)
[2018-07-21] MEDS ORDERED: FentaNYL CITRATE-PF 100 MCG/2 ML VIAL ONE (07:22)
[2018-07-21] MEDS: FentaNYL CITRATE-PF 100 MCG/2 ML VIAL IVP PRN ×2 (07:29→07:37)
[2018-07-21] MEDS: ACETAMINOPHEN 500 MG TABLET PO SCH (07:30)
[2018-07-21] MEDS: HYDROmorphone 2 MG/ML SYRINGE IVP PRN ×3 (07:34→15:40)
[2018-07-21] MEDS: OXYGEN THERAPY IH SCH (08:00)
[2018-07-21] MEDS: DOCUSATE SODIUM 100 MG CAPSULE PO SCH ×2 (08:35→22:14)
[2018-07-21] MEDS: VANCOMYCIN HCL 1.25 GM in DEXTROSE 5%-WATER 250 ML IV SCH (08:35)
[2018-07-21] MEDS: FLUCONAZOLE 200 MG TABLET PO SCH (08:35)
[2018-07-21] MEDS: MULTIVITAMINS WITH MINERALS, THERAPEUTIC TABLET PO SCH (08:35)
[2018-07-21] MEDS: PANTOPRAZOLE SODIUM 40 MG DR TABLET PO SCH (08:35)
[2018-07-21] MEDS: OxyCODONE HCL/ACETAMINOPHEN 10-325 MG TABLET PO PRN ×2 (08:36→22:14)
[2018-07-21] MEDS ORDERED: SODIUM CHLORIDE 0.9% 500 ML IV ONE ×2 (08:54→18:14)
[2018-07-21] MEDS ORDERED: MIDAZOLAM HCL 2 MG/2 ML VIAL IVP ONE (12:00)
[2018-07-21] MEDS ORDERED: LIDOCAINE/PF 2% 5 ML VIAL INJ ONE (12:00)
[2018-07-21] MEDS ORDERED: PROPOFOL 1% 20 ML VIAL IVP ONE (12:00)
[2018-07-21] MEDS ORDERED: FentaNYL CITRATE-PF 100 MCG/2 ML VIAL IVP ONE (12:00)
[2018-07-21] MEDS ORDERED: SUCCINYLCHOLINE CHLORIDE 20 MG/ML 10 ML VIAL IVP ONE (12:00)
[2018-07-21 18:26] LABS: ANION GAP 6 mmol/L (8-16); CALCIUM, TOTAL 8.3 mg/dL (8.8-10.5); CARBON DIOXIDE 29 mmol/L (22-29); CHLORIDE 102 mmol/L (98-107); CREATININE 1.24 mg/dL (0.60-1.30); GLOMERULAR FILTR. RATE CALC > 60 mL/min (>60); GLUCOSE,RANDOM 100 mg/dL (70-110); POTASSIUM 4.4 mmol/L (3.5-5.1); SODIUM SERUM 137 mmol/L (136-145); UREA NITROGEN, BLOOD 13 mg/dL (7-18); VANCOMYCIN,RANDOM 18.6 mcg/mL (25.0-50.0)
[2018-07-21 18:48] LABS: BASOPHILS % (AUTO) 1.3 % (0.0-2.0); EOSINOPHILS % (AUTO) 1.1 % (1.0-6.0); HEMATOCRIT 26.6 % (41-53); HEMOGLOBIN 9.1 g/dL (13.5-17.5); LYMPHOCYTES # (AUTO) 2.2 K/uL (1.0-4.8); LYMPHOCYTES % (AUTO) 18.3 % (22.0-44.0); MEAN CORPUSCULAR HEMOGLOBIN 28.5 pg (26.0-34.0); MEAN CORPUSCULAR HGB CONC 34.5 G/dL (31.0-37.0); MEAN CORPUSCULAR VOLUME 83 fL (80-100); MONOCYTES # (AUTO) 0.6 K/uL (0.1-1.0); MONOCYTES % (AUTO) 4.7 % (2.0-9.0); NEUTROPHILS # (AUTO) 8.9 K/uL (1.8-7.7); NEUTROPHILS % (AUTO) 74.6 % (40.0-70.0); PLATELET COUNT (AUTO) 487 K/uL (150-450); RED BLOOD CELL COUNT(AUTO) 3.21 MIL/uL (4.50-5.90)
[2018-07-21] MEDS: CYCLOBENZAPRINE HCL 10 MG TABLET PO PRN (22:14)
[2018-07-22] VITALS (8 sets, daily range): BP systolic 104–141; BP diastolic 55–86
[2018-07-22] MEDS: ACETAMINOPHEN 500 MG TABLET PO SCH ×3 (02:02→13:30)
[2018-07-22] MEDS: PIPERACILLIN/TAZO 3.375 GM/D5W 50 ML IV SCH ×2 (04:34→10:37)
[2018-07-22] MEDS: OXYGEN THERAPY IH SCH (08:00)
[2018-07-22] MEDS: FLUCONAZOLE 200 MG TABLET PO SCH (08:40)
[2018-07-22] MEDS: MULTIVITAMINS WITH MINERALS, THERAPEUTIC TABLET PO SCH (08:40)
[2018-07-22] MEDS: DOCUSATE SODIUM 100 MG CAPSULE PO SCH ×2 (08:40→21:00)
[2018-07-22] MEDS: PANTOPRAZOLE SODIUM 40 MG DR TABLET PO SCH (08:41)
[2018-07-22] MEDS: HYDROmorphone HCL 2 MG TABLET PO PRN ×2 (08:42→14:59)
[2018-07-22 09:47] LABS: LEGIONELLA PNEUMO AG URINE Negative (Negative); ORGANISM ID Not indicated.; S PNEUMO SOURCE Urine; STREP PNEUMONIAE AG URINE Negative (Negative); STREP.PNEUMO BODY FLUID CULT. Not Indicated
[2018-07-22] MEDS ORDERED: CIPR-278 PO (10:05)
[2018-07-22] MEDS: FERROUS SULFATE 325 MG EC TABLET PO SCH ×3 (12:34→21:25)
[2018-07-22] MEDS ORDERED: CefTRIAXone SODIUM 2 GM in DEXTROSE 5%-WATER 50 ML IV SCH (16:00)
[2018-07-22] MEDS: ACETAMINOPHEN 325 MG TABLET PO PRN (16:56)
[2018-07-22 16:58] LABS: CREATININE,URINE RANDOM 52.2 mg/dL (30.0-125.0); SODIUM,URINE RANDOM 140 mmol/l (20-110)
[2018-07-22 16:59] LABS: APPEARANCE,URINE CLEAR (CLEAR); BILIRUBIN,URINE NEGATIVE (NEGATIVE); GLUCOSE, URINE (UA) NEGATIVE (NEGATIVE); KETONES,URINE NEGATIVE (NEGATIVE); LEUKOCYTE ESTERASE ,URINE NEGATIVE (NEGATIVE); NITRATE,URINE NEGATIVE (NEGATIVE); OCCULT BLOOD,URINE NEGATIVE (NEGATIVE); PH,URINE 7.5 (5.0-8.0); PROTEIN,URINE NEGATIVE (NEGATIVE); UROBILINOGEN,URINE 0.2 mg/dL (<=1.0)
[2018-07-22 17:04] LABS: BACTERIA,URINE Rare /HPF (None Seen); RBC,URINE 0-2 /HPF (0-2); SQUAMOUS EPITHELIAL CELL,UR Rare /LPF (None Seen); WBC,URINE 0-2 /HPF (0-5)
[2018-07-22] MEDS ORDERED: SODIUM CHLORIDE 0.9% 500 ML IV SCH (21:00)
[2018-07-22] MEDS: ACETAMINOPHEN 325 MG TABLET PO SCH (21:25)
[2018-07-22] MEDS: DiphenhydrAMINE HCL 25 MG CAPSULE PO SCH (21:26)
[2018-07-22] MEDS ORDERED: DEXTROSE 5%-WATER 500 ML IV ONE (21:49)
[2018-07-22] MEDS: WATER IV SCH ×2 (22:00→22:38)
[2018-07-22] MEDS: AMPHOTERICIN B LIPOSOME IV SCH ×2 (22:00→22:38)
[2018-07-22] MEDS: DEXTROSE 5% IV SCH ×2 (22:00→22:38)
[2018-07-22] MEDS: OxyCODONE HCL/ACETAMINOPHEN 10-325 MG TABLET PO PRN (22:49)
[2018-07-22] MEDS ORDERED: METOPROLOL TARTRATE 5 MG/5 ML VIAL IVP PRN (23:15)
[2018-07-23 07:30] VITALS: BP 141/78
[2018-07-23] MEDS: OXYGEN THERAPY IH SCH ×2 (08:00→20:00)
[2018-07-23] MEDS: DOCUSATE SODIUM 100 MG CAPSULE PO SCH ×2 (08:09→20:05)
[2018-07-23] MEDS: PANTOPRAZOLE SODIUM 40 MG DR TABLET PO SCH (08:15)
[2018-07-23] MEDS: MULTIVITAMINS WITH MINERALS, THERAPEUTIC TABLET PO SCH (08:15)
[2018-07-23] MEDS: OxyCODONE HCL/ACETAMINOPHEN 10-325 MG TABLET PO PRN (08:15)
[2018-07-23] MEDS: FERROUS SULFATE 325 MG EC TABLET PO SCH ×4 (08:15→19:56)
[2018-07-23 11:26] VITALS: BP 140/74
[2018-07-23] MEDS ORDERED: HYDROmorphone 2 MG/ML SYRINGE IVP ONE ×2 (11:30→15:30)
[2018-07-23] MEDS ORDERED: ONDANSETRON HCL 4 MG/2 ML VIAL IVP ONE (12:00)
[2018-07-23] MEDS ORDERED: KETOROLAC TROMETHAMINE 60 MG/2 ML VIAL IM ONE (12:00)
[2018-07-23] MEDS ORDERED: LIDOCAINE/PF 2% 5 ML VIAL INJ ONE (12:00)
[2018-07-23] MEDS ORDERED: PROPOFOL 1% 20 ML VIAL IVP ONE (12:00)
[2018-07-23] MEDS ORDERED: DEXAMETHASONE SOD PHOS 4 MG/ML VIAL IVP ONE (12:00)
[2018-07-23] MEDS ORDERED: BUPIVACAINE HCL/PF 0.5% 30 ML VIAL ONE (12:52)
[2018-07-23] MEDS ORDERED: PROPOFOL 1000 MG/ISO-OSM 100 ML IV ONE (12:53)
[2018-07-23] MEDS ORDERED: ACETAMINOPHEN 1000 MG/ISO-OSM 100 ML IV ONE (12:53)
[2018-07-23] MEDS ORDERED: RINGERS SOLUTION,LACTATED 1,000 ML IV ONE (13:07)
[2018-07-23] MEDS ORDERED: SODIUM CL IRRIG SOLN BAG 3,000 ML IRRIG ONE (13:09)
[2018-07-23] MEDS ORDERED: CefTAZidime PENTAHYDRATE 2 GM in DEXTROSE 5%-WATER 50 ML IV SCH (14:00)
[2018-07-23] MEDS ORDERED: HYDROmorphone 2 MG/ML SYRINGE ONE (15:12)
[2018-07-23 15:26] LABS: BASOPHILS % (AUTO) 0.3 % (0.0-2.0); EOSINOPHILS % (AUTO) 0.1 % (1.0-6.0); HEMATOCRIT 25.2 % (41-53); HEMOGLOBIN 8.2 g/dL (13.5-17.5); LYMPHOCYTES # (AUTO) 0.6 K/uL (1.0-4.8); LYMPHOCYTES % (AUTO) 3.6 % (22.0-44.0); MEAN CORPUSCULAR HEMOGLOBIN 26.6 pg (26.0-34.0); MEAN CORPUSCULAR HGB CONC 32.7 G/dL (31.0-37.0); MEAN CORPUSCULAR VOLUME 81 fL (80-100); MONOCYTES # (AUTO) 0.4 K/uL (0.1-1.0); MONOCYTES % (AUTO) 2.5 % (2.0-9.0); NEUTROPHILS # (AUTO) 14.6 K/uL (1.8-7.7); PLATELET COUNT (AUTO) 422 K/uL (150-450); RED BLOOD CELL COUNT(AUTO) 3.09 MIL/uL (4.50-5.90); RED CELL DISTRIBUTION WIDTH 14.9 % (11.5-14.5)
[2018-07-23 15:29] LABS: NEUTROPHILS % (AUTO) 93.5 % (40.0-70.0)
[2018-07-23 15:39] LABS: ANION GAP 7 mmol/L (8-16); CALCIUM, TOTAL 8.2 mg/dL (8.8-10.5); CARBON DIOXIDE 26 mmol/L (22-29); CHLORIDE 99 mmol/L (98-107); CREATININE 0.91 mg/dL (0.60-1.30); GLOMERULAR FILTR. RATE CALC > 60 mL/min (>60); GLUCOSE,RANDOM 107 mg/dL (70-110); POTASSIUM 3.9 mmol/L (3.5-5.1); SODIUM SERUM 132 mmol/L (136-145); UREA NITROGEN, BLOOD 14 mg/dL (7-18)
[2018-07-23 16:04] LABS: PLATELET MORPHOLOGY COMMENT INCREASED
[2018-07-23 16:12] VITALS: BP 132/73
[2018-07-23] MEDS ORDERED: HYDROmorphone 2 MG/ML SYRINGE IVP PRN (16:15)
[2018-07-23] MEDS ORDERED: FentaNYL CITRATE-PF 100 MCG/2 ML VIAL IVP PRN (16:15)
[2018-07-23] MEDS ORDERED: MEPERIDINE-PF 25 MG/ML VIAL IVP PRN (16:15)
[2018-07-23] MEDS ORDERED: SODIUM CHLORIDE 0.9% 250 ML IV ONE (16:20)
[2018-07-23] MEDS: PIPERACILLIN/TAZO 3.375 GM/D5W 50 ML IV SCH (16:23)
[2018-07-23] MEDS ORDERED: MAGNESIUM SULFATE 2 GM/WATER 50 ML IV ONE (16:45)
[2018-07-23 17:17] LABS: AMPHET/METH SCREEN,URINE NEGATIVE (NEGATIVE); BARBITURATE SCREEN, URINE NEGATIVE (NEGATIVE); BENZODIAZEPINES SCREEN,URINE POSITIVE (NEGATIVE); CANNABINOID SCREEN,URINE POSITIVE (NEGATIVE); COCAINE SCREEN,URINE NEGATIVE (NEGATIVE); METHADONE SCREEN, URINE NEGATIVE (NEGATIVE); OPIATE SCREEN,URINE POSITIVE (NEGATIVE)
[2018-07-23 17:18] VITALS: BP 139/69
[2018-07-23 17:19] LABS: PHENCYCLIDINE SCREEN,URINE NEGATIVE (NEGATIVE)
[2018-07-23] MEDS: ACETAMINOPHEN 500 MG TABLET PO SCH (18:04)
[2018-07-23 18:18] VITALS: BP 147/70
[2018-07-23] MEDS: ACETAMINOPHEN 325 MG TABLET PO SCH (19:56)
[2018-07-23] MEDS: SODIUM CHLORIDE 0.9% 250 ML IV SCH (19:56)
[2018-07-23] MEDS: DiphenhydrAMINE HCL 25 MG CAPSULE PO SCH (19:56)
[2018-07-23 20:17] VITALS: BP 148/62
[2018-07-23] MEDS ORDERED: DEXTROSE 5%-WATER 500 ML IV ONE (21:33)
[2018-07-23] MEDS: AMPHOTERICIN B LIPOSOME IV SCH (21:35)
[2018-07-23] MEDS: WATER IV SCH (21:35)
[2018-07-23] MEDS: DEXTROSE 5% IV SCH (21:35)
[2018-07-24] VITALS (7 sets, daily range): BP systolic 113–152; BP diastolic 59–91
[2018-07-24] MEDS: ACETAMINOPHEN 500 MG TABLET PO SCH ×5 (00:31→23:33)
[2018-07-24] MEDS: KETOROLAC TROMETHAMINE 15 MG/ML VIAL IVP SCH ×2 (00:31→06:19)
[2018-07-24] MEDS: ZOLPIDEM TARTRATE 10 MG TABLET PO PRN (00:48)
[2018-07-24] MEDS: PIPERACILLIN/TAZO 3.375 GM/D5W 50 ML IV SCH ×4 (00:48→17:54)
[2018-07-24 07:02] LABS: BASOPHILS % (AUTO) 0.1 % (0.0-2.0); EOSINOPHILS % (AUTO) 0 % (1.0-6.0); HEMATOCRIT 26.6 % (41-53); HEMOGLOBIN 8.7 g/dL (13.5-17.5); LYMPHOCYTES # (AUTO) 1.5 K/uL (1.0-4.8); MEAN CORPUSCULAR HEMOGLOBIN 26.8 pg (26.0-34.0); MEAN CORPUSCULAR HGB CONC 32.7 G/dL (31.0-37.0); MEAN CORPUSCULAR VOLUME 82 fL (80-100); MONOCYTES # (AUTO) 0.5 K/uL (0.1-1.0); MONOCYTES % (AUTO) 3.2 % (2.0-9.0); NEUTROPHILS # (AUTO) 14.8 K/uL (1.8-7.7); PLATELET COUNT (AUTO) 597 K/uL (150-450); RED BLOOD CELL COUNT(AUTO) 3.24 MIL/uL (4.50-5.90); RED CELL DISTRIBUTION WIDTH 14.9 % (11.5-14.5)
[2018-07-24 07:19] LABS: NEUTROPHILS % (AUTO) 87.7 % (40.0-70.0)
[2018-07-24 07:26] LABS: ALANINE AMINOTRANSFERASE 27 U/L (12-78); ALBUMIN 2.1 g/dL (3.4-5.0); ALKALINE PHOSPHATASE 74 U/L (46-116); ANION GAP 6 mmol/L (8-16); ASPARTATE AMINOTRANSFERASE 18 U/L (15-37); BILIRUBIN,TOTAL 0.2 mg/dL (0.1-1.0); CALCIUM, TOTAL 8.6 mg/dL (8.8-10.5); CARBON DIOXIDE 27 mmol/L (22-29); CHLORIDE 103 mmol/L (98-107); CREATININE 0.92 mg/dL (0.60-1.30); GLOMERULAR FILTR. RATE CALC > 60 mL/min (>60); GLUCOSE,RANDOM 125 mg/dL (70-110); POTASSIUM 3.6 mmol/L (3.5-5.1); SODIUM SERUM 136 mmol/L (136-145); TOTAL PROTEIN, SERUM 7.5 g/dL (6.4-8.2); UREA NITROGEN, BLOOD 19 mg/dL (7-18)
[2018-07-24] MEDS: OXYGEN THERAPY IH SCH ×2 (08:00→20:00)
[2018-07-24] MEDS: FERROUS SULFATE 325 MG EC TABLET PO SCH ×4 (08:38→20:47)
[2018-07-24] MEDS: PANTOPRAZOLE SODIUM 40 MG DR TABLET PO SCH (08:39)
[2018-07-24] MEDS: DOCUSATE SODIUM 100 MG CAPSULE PO SCH ×2 (08:39→20:48)
[2018-07-24] MEDS: MULTIVITAMINS WITH MINERALS, THERAPEUTIC TABLET PO SCH (08:39)
[2018-07-24] MEDS: HYDROmorphone HCL 2 MG TABLET PO PRN ×4 (08:40→21:53)
[2018-07-24] MEDS ORDERED: KETOROLAC TROMETHAMINE 15 MG/ML VIAL IVP PRN (11:15)
[2018-07-24] MEDS ORDERED: MIDAZOLAM HCL 2 MG/2 ML VIAL IVP ONE (12:00)
[2018-07-24] MEDS ORDERED: KETAMINE HCL 50 MG/ML 10 ML VIAL IVP ONE (12:00)
[2018-07-24] MEDS: HYDROmorphone 2 MG/ML SYRINGE IVP PRN (16:20)
[2018-07-24] MEDS: SODIUM CHLORIDE 0.9% 250 ML IV SCH (20:46)
[2018-07-24] MEDS: DiphenhydrAMINE HCL 25 MG CAPSULE PO SCH (20:47)
[2018-07-24] MEDS: ACETAMINOPHEN 325 MG TABLET PO SCH (20:47)
[2018-07-24] MEDS: AMPHOTERICIN B LIPOSOME IV SCH (22:53)
[2018-07-24] MEDS: WATER IV SCH (22:53)
[2018-07-24] MEDS: DEXTROSE 5% IV SCH (22:53)
[2018-07-25] MEDS: PIPERACILLIN/TAZO 3.375 GM/D5W 50 ML IV SCH ×4 (01:55→19:40)
[2018-07-25 05:01] VITALS: BP 105/65
[2018-07-25 05:55] LABS: BASOPHILS % (AUTO) 0.9 % (0.0-2.0); EOSINOPHILS % (AUTO) 0.6 % (1.0-6.0); HEMATOCRIT 21.7 % (41-53); HEMOGLOBIN 7.5 g/dL (13.5-17.5); LYMPHOCYTES # (AUTO) 2.5 K/uL (1.0-4.8); MEAN CORPUSCULAR HEMOGLOBIN 28.1 pg (26.0-34.0); MEAN CORPUSCULAR HGB CONC 34.5 G/dL (31.0-37.0); MEAN CORPUSCULAR VOLUME 82 fL (80-100); MONOCYTES # (AUTO) 0.9 K/uL (0.1-1.0); MONOCYTES % (AUTO) 9.2 % (2.0-9.0); NEUTROPHILS # (AUTO) 6.2 K/uL (1.8-7.7); NEUTROPHILS % (AUTO) 63.3 % (40.0-70.0); PLATELET COUNT (AUTO) 436 K/uL (150-450); RED BLOOD CELL COUNT(AUTO) 2.66 MIL/uL (4.50-5.90); RED CELL DISTRIBUTION WIDTH 15.2 % (11.5-14.5)
[2018-07-25 06:07] LABS: ANION GAP 6 mmol/L (8-16); CALCIUM, TOTAL 8.3 mg/dL (8.8-10.5); CARBON DIOXIDE 28 mmol/L (22-29); CHLORIDE 103 mmol/L (98-107); CREATININE 1.17 mg/dL (0.60-1.30); GLOMERULAR FILTR. RATE CALC > 60 mL/min (>60); GLUCOSE,RANDOM 94 mg/dL (70-110); POTASSIUM 3.1 mmol/L (3.5-5.1); SODIUM SERUM 137 mmol/L (136-145); UREA NITROGEN, BLOOD 22 mg/dL (7-18)
[2018-07-25 07:54] VITALS: BP 108/59
[2018-07-25] MEDS: FERROUS SULFATE 325 MG EC TABLET PO SCH ×3 (07:58→17:36)
[2018-07-25] MEDS: PANTOPRAZOLE SODIUM 40 MG DR TABLET PO SCH (07:59)
[2018-07-25] MEDS: ACETAMINOPHEN 500 MG TABLET PO SCH ×3 (07:59→23:17)
[2018-07-25] MEDS: DOCUSATE SODIUM 100 MG CAPSULE PO SCH ×2 (07:59→21:00)
[2018-07-25] MEDS: MULTIVITAMINS WITH MINERALS, THERAPEUTIC TABLET PO SCH (08:00)
[2018-07-25] MEDS: OXYGEN THERAPY IH SCH ×2 (08:00→20:00)
[2018-07-25] MEDS: HYDROmorphone HCL 2 MG TABLET PO PRN ×3 (08:02→22:36)
[2018-07-25] MEDS ORDERED: POTASSIUM CHLORIDE 20 MEQ ER TABLET PO ONE (10:00)
[2018-07-25] MEDS ORDERED: MAGNESIUM SULFATE 3 GM in DEXTROSE 5%-WATER 100 ML IV ONE (11:00)
[2018-07-25 11:24] VITALS: BP 116/72
[2018-07-25 15:37] VITALS: BP 111/78
[2018-07-25 19:36] VITALS: BP 124/67
[2018-07-25] MEDS: DiphenhydrAMINE HCL 25 MG CAPSULE PO SCH (21:15)
[2018-07-25] MEDS: ACETAMINOPHEN 325 MG TABLET PO SCH (21:15)
[2018-07-25] MEDS: SODIUM CHLORIDE 0.9% 250 ML IV SCH (21:16)
[2018-07-25] MEDS: WATER IV SCH (22:22)
[2018-07-25] MEDS: AMPHOTERICIN B LIPOSOME IV SCH (22:22)
[2018-07-25] MEDS: DEXTROSE 5% IV SCH (22:22)
[2018-07-26 00:29] VITALS: BP 114/59
[2018-07-26] MEDS: PIPERACILLIN/TAZO 3.375 GM/D5W 50 ML IV SCH ×4 (00:48→19:06)
[2018-07-26] MEDS: HYDROmorphone HCL 2 MG TABLET PO PRN ×5 (03:45→20:40)
[2018-07-26 03:51] VITALS: BP 144/70
[2018-07-26 06:02] LABS: BASOPHILS % (AUTO) 1.3 % (0.0-2.0); EOSINOPHILS % (AUTO) 0.8 % (1.0-6.0); HEMATOCRIT 23.8 % (41-53); LYMPHOCYTES # (AUTO) 2.8 K/uL (1.0-4.8); LYMPHOCYTES % (AUTO) 29.2 % (22.0-44.0); MEAN CORPUSCULAR HEMOGLOBIN 27.3 pg (26.0-34.0); MEAN CORPUSCULAR HGB CONC 33.5 G/dL (31.0-37.0); MEAN CORPUSCULAR VOLUME 82 fL (80-100); MONOCYTES # (AUTO) 0.8 K/uL (0.1-1.0); MONOCYTES % (AUTO) 7.9 % (2.0-9.0); NEUTROPHILS # (AUTO) 5.8 K/uL (1.8-7.7); NEUTROPHILS % (AUTO) 60.8 % (40.0-70.0); PLATELET COUNT (AUTO) 516 K/uL (150-450); RED BLOOD CELL COUNT(AUTO) 2.92 MIL/uL (4.50-5.90); RED CELL DISTRIBUTION WIDTH 15.3 % (11.5-14.5)
[2018-07-26 06:20] LABS: ANION GAP 9 mmol/L (8-16); CALCIUM, TOTAL 8.6 mg/dL (8.8-10.5); CARBON DIOXIDE 26 mmol/L (22-29); CHLORIDE 101 mmol/L (98-107); GLOMERULAR FILTR. RATE CALC > 60 mL/min (>60); GLUCOSE,RANDOM 111 mg/dL (70-110); POTASSIUM 3.5 mmol/L (3.5-5.1); SODIUM SERUM 136 mmol/L (136-145); UREA NITROGEN, BLOOD 23 mg/dL (7-18)
[2018-07-26] MEDS ORDERED: SODIUM CHLORIDE 0.9% 100 ML ONE (06:20)
[2018-07-26] MEDS: OXYGEN THERAPY IH SCH ×2 (08:00→20:00)
[2018-07-26 08:06] VITALS: BP 111/43
[2018-07-26] MEDS: ACETAMINOPHEN 500 MG TABLET PO SCH ×3 (08:21→23:52)
[2018-07-26] MEDS: PANTOPRAZOLE SODIUM 40 MG DR TABLET PO SCH (08:22)
[2018-07-26] MEDS: FERROUS SULFATE 325 MG EC TABLET PO SCH ×3 (08:22→16:17)
[2018-07-26] MEDS: DOCUSATE SODIUM 100 MG CAPSULE PO SCH ×2 (08:22→21:00)
[2018-07-26] MEDS: MULTIVITAMINS WITH MINERALS, THERAPEUTIC TABLET PO SCH (08:23)
[2018-07-26 11:43] VITALS: BP 117/77
[2018-07-26] MEDS: HYDROmorphone 2 MG/ML SYRINGE IVP PRN (13:17)
[2018-07-26 16:44] VITALS: BP 114/66
[2018-07-26 20:13] VITALS: BP 114/78
[2018-07-26] MEDS: DiphenhydrAMINE HCL 25 MG CAPSULE PO SCH (20:40)
[2018-07-26] MEDS: SODIUM CHLORIDE 0.9% 250 ML IV SCH (20:41)
[2018-07-26] MEDS: ACETAMINOPHEN 325 MG TABLET PO SCH (21:00)
[2018-07-26] MEDS: AMPHOTERICIN B LIPOSOME IV SCH (22:11)
[2018-07-26] MEDS: DEXTROSE 5% IV SCH (22:11)
[2018-07-26] MEDS: WATER IV SCH (22:11)
[2018-07-27 00:04] VITALS: BP 111/71
[2018-07-27] MEDS: PIPERACILLIN/TAZO 3.375 GM/D5W 50 ML IV SCH ×4 (00:41→18:05)
[2018-07-27 04:23] VITALS: BP 107/75
[2018-07-27] MEDS: OXYGEN THERAPY IH SCH ×2 (08:00→20:00)
[2018-07-27] MEDS: ACETAMINOPHEN 500 MG TABLET PO SCH ×3 (08:00→23:11)
[2018-07-27] MEDS: PANTOPRAZOLE SODIUM 40 MG DR TABLET PO SCH (09:25)
[2018-07-27] MEDS: MULTIVITAMINS WITH MINERALS, THERAPEUTIC TABLET PO SCH (09:25)
[2018-07-27] MEDS: DOCUSATE SODIUM 100 MG CAPSULE PO SCH ×2 (09:25→20:29)
[2018-07-27] MEDS: FERROUS SULFATE 325 MG EC TABLET PO SCH ×3 (09:25→18:04)
[2018-07-27] MEDS: HYDROmorphone HCL 2 MG TABLET PO PRN ×2 (09:25→13:48)
[2018-07-27] MEDS: METHADONE HCL 10 MG TABLET PO SCH (11:04)
[2018-07-27 14:41] VITALS: BP 115/78
[2018-07-27 19:28] VITALS: BP 124/74
[2018-07-27] MEDS: SODIUM CHLORIDE 0.9% 250 ML IV SCH (20:29)
[2018-07-27] MEDS: DiphenhydrAMINE HCL 25 MG CAPSULE PO SCH (20:29)
[2018-07-27] MEDS: ACETAMINOPHEN 325 MG TABLET PO SCH (20:29)
[2018-07-27] MEDS: DEXTROSE 5% IV SCH (22:14)
[2018-07-27] MEDS: WATER IV SCH (22:14)
[2018-07-27] MEDS: AMPHOTERICIN B LIPOSOME IV SCH (22:14)
[2018-07-27 23:45] VITALS: BP 129/79
[2018-07-28] VITALS (15 sets, daily range): BP systolic 98–143; BP diastolic 51–88
[2018-07-28] MEDS: PIPERACILLIN/TAZO 3.375 GM/D5W 50 ML IV SCH ×4 (01:27→21:56)
[2018-07-28] MEDS: HYDROmorphone HCL 2 MG TABLET PO PRN ×2 (05:31→15:10)
[2018-07-28 06:03] LABS: BASOPHILS % (AUTO) 1.1 % (0.0-2.0); EOSINOPHILS % (AUTO) 1.6 % (1.0-6.0); HEMOGLOBIN 7.5 g/dL (13.5-17.5); LYMPHOCYTES % (AUTO) 21.4 % (22.0-44.0); MEAN CORPUSCULAR HGB CONC 34.2 G/dL (31.0-37.0); MEAN CORPUSCULAR VOLUME 82 fL (80-100); MONOCYTES # (AUTO) 0.6 K/uL (0.1-1.0); MONOCYTES % (AUTO) 6.1 % (2.0-9.0); NEUTROPHILS # (AUTO) 6.4 K/uL (1.8-7.7); NEUTROPHILS % (AUTO) 69.8 % (40.0-70.0); PLATELET COUNT (AUTO) 410 K/uL (150-450); RED BLOOD CELL COUNT(AUTO) 2.69 MIL/uL (4.50-5.90); RED CELL DISTRIBUTION WIDTH 15.5 % (11.5-14.5)
[2018-07-28 06:38] LABS: ALBUMIN 2.1 g/dL (3.4-5.0); BILIRUBIN,TOTAL 0.2 mg/dL (0.1-1.0); CALCIUM, TOTAL 8.6 mg/dL (8.8-10.5); CREATININE 1.69 mg/dL (0.60-1.30); MAGNESIUM 1.9 mg/dL (1.80-2.40); PHOSPHORUS 5.2 mg/dL (2.5-4.9); POTASSIUM 3.8 mmol/L (3.5-5.1); TOTAL PROTEIN, SERUM 6.7 g/dL (6.4-8.2)
[2018-07-28] MEDS: ACETAMINOPHEN 500 MG TABLET PO SCH ×2 (08:00→16:00)
[2018-07-28] MEDS: OXYGEN THERAPY IH SCH ×2 (08:00→20:00)
[2018-07-28] MEDS: FERROUS SULFATE 325 MG EC TABLET PO SCH ×3 (08:14→18:49)
[2018-07-28] MEDS: MULTIVITAMINS WITH MINERALS, THERAPEUTIC TABLET PO SCH (08:14)
[2018-07-28] MEDS: PANTOPRAZOLE SODIUM 40 MG DR TABLET PO SCH (08:14)
[2018-07-28] MEDS: DOCUSATE SODIUM 100 MG CAPSULE PO SCH ×2 (08:14→21:00)
[2018-07-28] MEDS: METHADONE HCL 10 MG TABLET PO SCH (08:14)
[2018-07-28] MEDS ORDERED: DiphenhydrAMINE HCL 50 MG/ML VIAL IVP ONE (13:15)
[2018-07-28] MEDS ORDERED: ACETAMINOPHEN 325 MG TABLET PO ONE (13:15)
[2018-07-28] MEDS: SODIUM CHLORIDE 0.9% 1,000 ML IV SCH (14:44)
[2018-07-28] MEDS: HYDROmorphone 2 MG/ML SYRINGE IVP PRN (14:44)
[2018-07-28] MEDS: DEXTROSE 5% IV SCH (17:17)
[2018-07-28] MEDS: VORICONAZOLE IV SCH (17:17)
[2018-07-28] MEDS: WATER IV SCH (17:17)
[2018-07-28] MEDS ORDERED: SODIUM CHLORIDE 0.9% 250 ML IV ONE (21:38)
[2018-07-29] VITALS (9 sets, daily range): BP systolic 110–132; BP diastolic 60–85
[2018-07-29] MEDS: PIPERACILLIN/TAZO 3.375 GM/D5W 50 ML IV SCH ×4 (01:10→21:29)
[2018-07-29] MEDS: WATER IV SCH ×2 (02:16→14:22)
[2018-07-29] MEDS: DEXTROSE 5% IV SCH ×2 (02:16→14:22)
[2018-07-29] MEDS: VORICONAZOLE IV SCH ×2 (02:16→14:22)
[2018-07-29 07:00] LABS: BASOPHILS % (AUTO) 2.2 % (0.0-2.0); EOSINOPHILS % (AUTO) 3.1 % (1.0-6.0); HEMATOCRIT 24.8 % (41-53); HEMOGLOBIN 8.4 g/dL (13.5-17.5); LYMPHOCYTES # (AUTO) 1.9 K/uL (1.0-4.8); LYMPHOCYTES % (AUTO) 29.8 % (22.0-44.0); MEAN CORPUSCULAR HEMOGLOBIN 28.1 pg (26.0-34.0); MEAN CORPUSCULAR HGB CONC 33.9 G/dL (31.0-37.0); MEAN CORPUSCULAR VOLUME 83 fL (80-100); MONOCYTES # (AUTO) 0.5 K/uL (0.1-1.0); MONOCYTES % (AUTO) 7.6 % (2.0-9.0); NEUTROPHILS # (AUTO) 3.7 K/uL (1.8-7.7); NEUTROPHILS % (AUTO) 57.3 % (40.0-70.0); PLATELET COUNT (AUTO) 320 K/uL (150-450); RED BLOOD CELL COUNT(AUTO) 2.98 MIL/uL (4.50-5.90); RED CELL DISTRIBUTION WIDTH 15.3 % (11.5-14.5)
[2018-07-29 07:08] LABS: ALBUMIN 1.9 g/dL (3.4-5.0); BILIRUBIN,TOTAL 0.2 mg/dL (0.1-1.0); CALCIUM, TOTAL 8.6 mg/dL (8.8-10.5); CREATININE 1.52 mg/dL (0.60-1.30); POTASSIUM 3.9 mmol/L (3.5-5.1); TOTAL PROTEIN, SERUM 6.1 g/dL (6.4-8.2)
[2018-07-29] MEDS: FERROUS SULFATE 325 MG EC TABLET PO SCH ×3 (08:56→18:36)
[2018-07-29] MEDS: DOCUSATE SODIUM 100 MG CAPSULE PO SCH ×2 (08:56→21:00)
[2018-07-29] MEDS: PANTOPRAZOLE SODIUM 40 MG DR TABLET PO SCH (08:56)
[2018-07-29] MEDS: ACETAMINOPHEN 500 MG TABLET PO SCH ×4 (08:56→23:56)
[2018-07-29] MEDS: MULTIVITAMINS WITH MINERALS, THERAPEUTIC TABLET PO SCH (08:56)
[2018-07-29] MEDS: METHADONE HCL 10 MG TABLET PO SCH (08:56)
[2018-07-29] MEDS: HYDROmorphone HCL 2 MG TABLET PO PRN (18:37)
[2018-07-29] MEDS: OXYGEN THERAPY IH SCH (20:00)
[2018-07-30] MEDS ORDERED: SODIUM CHLORIDE 0.9% 0 ML ONE (02:18)
[2018-07-30] MEDS ORDERED: SODIUM CHLORIDE 0.9% 100 ML ONE (02:19)
[2018-07-30] MEDS: PIPERACILLIN/TAZO 3.375 GM/D5W 50 ML IV SCH ×4 (02:49→18:23)
[2018-07-30] MEDS: VORICONAZOLE IV SCH ×2 (03:00→14:59)
[2018-07-30] MEDS: DEXTROSE 5% IV SCH ×2 (03:00→14:59)
[2018-07-30] MEDS: WATER IV SCH ×2 (03:00→14:59)
[2018-07-30 03:41] VITALS: BP 122/76
[2018-07-30 07:26] LABS: CALCIUM, TOTAL 8.8 mg/dL (8.8-10.5); CREATININE 1.6 mg/dL (0.60-1.30); MAGNESIUM 1.8 mg/dL (1.80-2.40); POTASSIUM 3.5 mmol/L (3.5-5.1)
[2018-07-30 07:52] LABS: BASOPHILS % (AUTO) 1.2 % (0.0-2.0); EOSINOPHILS % (AUTO) 2.2 % (1.0-6.0); HEMATOCRIT 25.1 % (41-53); HEMOGLOBIN 8.6 g/dL (13.5-17.5); LYMPHOCYTES # (AUTO) 2.3 K/uL (1.0-4.8); LYMPHOCYTES % (AUTO) 27.9 % (22.0-44.0); MEAN CORPUSCULAR HEMOGLOBIN 28.6 pg (26.0-34.0); MEAN CORPUSCULAR HGB CONC 34.4 G/dL (31.0-37.0); MEAN CORPUSCULAR VOLUME 83 fL (80-100); MONOCYTES # (AUTO) 0.6 K/uL (0.1-1.0); NEUTROPHILS % (AUTO) 61.7 % (40.0-70.0); PLATELET COUNT (AUTO) 284 K/uL (150-450); RED BLOOD CELL COUNT(AUTO) 3.02 MIL/uL (4.50-5.90); RED CELL DISTRIBUTION WIDTH 15.1 % (11.5-14.5)
[2018-07-30] MEDS: OXYGEN THERAPY IH SCH ×2 (08:00→20:00)
[2018-07-30] MEDS: DOCUSATE SODIUM 100 MG CAPSULE PO SCH ×2 (09:00→20:57)
[2018-07-30] MEDS: FERROUS SULFATE 325 MG EC TABLET PO SCH ×3 (09:17→18:23)
[2018-07-30 09:18] VITALS: BP 125/76
[2018-07-30] MEDS: MULTIVITAMINS WITH MINERALS, THERAPEUTIC TABLET PO SCH (09:21)
[2018-07-30] MEDS: ACETAMINOPHEN 500 MG TABLET PO SCH ×2 (09:21→15:07)
[2018-07-30] MEDS: METHADONE HCL 10 MG TABLET PO SCH (09:21)
[2018-07-30] MEDS: PANTOPRAZOLE SODIUM 40 MG DR TABLET PO SCH (09:22)
[2018-07-30] MEDS: HYDROmorphone HCL 2 MG TABLET PO PRN (11:51)
[2018-07-30 14:22] VITALS: BP 118/72
[2018-07-30 15:04] VITALS: BP 125/73
[2018-07-30] MEDS: OxyCODONE HCL/ACETAMINOPHEN 10-325 MG TABLET PO PRN (15:21)
[2018-07-30 19:58] VITALS: BP 123/78
[2018-07-30] MEDS: SODIUM CHLORIDE 0.9% 1,000 ML IV SCH (22:55)
[2018-07-31] MEDS: ACETAMINOPHEN 500 MG TABLET PO SCH ×3 (00:07→15:10)
[2018-07-31 00:55] VITALS: BP 134/78
[2018-07-31] MEDS: PIPERACILLIN/TAZO 3.375 GM/D5W 50 ML IV SCH ×4 (01:46→21:37)
[2018-07-31] MEDS: DEXTROSE 5% IV SCH ×2 (02:34→15:05)
[2018-07-31] MEDS: VORICONAZOLE IV SCH ×2 (02:34→15:05)
[2018-07-31] MEDS: WATER IV SCH ×2 (02:34→15:05)
[2018-07-31 05:18] VITALS: BP 111/58
[2018-07-31 06:16] LABS: BASOPHILS % (AUTO) 1.4 % (0.0-2.0); EOSINOPHILS % (AUTO) 4.3 % (1.0-6.0); HEMATOCRIT 24.8 % (41-53); HEMOGLOBIN 8.5 g/dL (13.5-17.5); LYMPHOCYTES # (AUTO) 1.7 K/uL (1.0-4.8); LYMPHOCYTES % (AUTO) 31.8 % (22.0-44.0); MEAN CORPUSCULAR HEMOGLOBIN 28.5 pg (26.0-34.0); MEAN CORPUSCULAR HGB CONC 34.2 G/dL (31.0-37.0); MEAN CORPUSCULAR VOLUME 84 fL (80-100); MONOCYTES # (AUTO) 0.5 K/uL (0.1-1.0); MONOCYTES % (AUTO) 9.5 % (2.0-9.0); NEUTROPHILS # (AUTO) 2.9 K/uL (1.8-7.7); PLATELET COUNT (AUTO) 269 K/uL (150-450); RED BLOOD CELL COUNT(AUTO) 2.97 MIL/uL (4.50-5.90)
[2018-07-31 06:42] LABS: ANION GAP 6 mmol/L (8-16); CALCIUM, TOTAL 8.6 mg/dL (8.8-10.5); CARBON DIOXIDE 30 mmol/L (22-29); CHLORIDE 103 mmol/L (98-107); CREATININE 1.22 mg/dL (0.60-1.30); GLOMERULAR FILTR. RATE CALC > 60 mL/min (>60); GLUCOSE,RANDOM 93 mg/dL (70-110); PHOSPHORUS 4.8 mg/dL (2.5-4.9); POTASSIUM 3.7 mmol/L (3.5-5.1); SODIUM SERUM 139 mmol/L (136-145); UREA NITROGEN, BLOOD 20 mg/dL (7-18)
[2018-07-31 07:39] VITALS: BP 114/63
[2018-07-31] MEDS: OXYGEN THERAPY IH SCH ×3 (08:00→20:00)
[2018-07-31] MEDS: FERROUS SULFATE 325 MG EC TABLET PO SCH ×3 (08:00→18:34)
[2018-07-31] MEDS: DOCUSATE SODIUM 100 MG CAPSULE PO SCH ×2 (09:00→21:00)
[2018-07-31] MEDS: MULTIVITAMINS WITH MINERALS, THERAPEUTIC TABLET PO SCH (09:48)
[2018-07-31] MEDS: METHADONE HCL 10 MG TABLET PO SCH (09:49)
[2018-07-31] MEDS: PANTOPRAZOLE SODIUM 40 MG DR TABLET PO SCH (09:52)
[2018-07-31] MEDS ORDERED: MAGNESIUM SULFATE 3 GM in DEXTROSE 5%-WATER 100 ML IV ONE (11:00)
[2018-07-31] MEDS ORDERED: RINGERS SOLUTION,LACTATED 1,000 ML IV ONE ×2 (11:04→11:30)
[2018-07-31] MEDS ORDERED: BUPIVACAINE 0.25%/EPI 1:200,000/PF 10 ML VIAL ONE (11:35)
[2018-07-31] MEDS ORDERED: MINERAL OIL 10 ML VIAL TP ONE ×2 (11:36→11:51)
[2018-07-31] MEDS ORDERED: BUPIVACAINE 0.25%/EPI 1:200,000/PF 10 ML VIAL INJ ONE (12:35)
[2018-07-31] MEDS ORDERED: LIDOCAINE 1%/EPI 1:200,000/PF 10 ML VIAL ONE (12:36)
[2018-07-31] MEDS ORDERED: LIDOCAINE 1%/EPI 1:200,000/PF 30 ML VIAL ONE (12:49)
[2018-07-31] MEDS ORDERED: FentaNYL CITRATE-PF 100 MCG/2 ML VIAL IVP PRN (13:30)
[2018-07-31] MEDS ORDERED: MEPERIDINE-PF 25 MG/ML VIAL IVP PRN (13:30)
[2018-07-31] MEDS ORDERED: HYDROmorphone 2 MG/ML SYRINGE IVP PRN (13:30)
[2018-07-31] MEDS ORDERED: MEPERIDINE-PF 25 MG/ML VIAL ONE (14:02)
[2018-07-31] MEDS ORDERED: FentaNYL CITRATE-PF 100 MCG/2 ML VIAL ONE (14:17)
[2018-07-31 15:17] VITALS: BP 111/66
[2018-07-31] MEDS: HYDROmorphone 2 MG/ML SYRINGE IVP PRN (18:26)
[2018-07-31 20:23] VITALS: BP 122/70
[2018-07-31] MEDS: OxyCODONE HCL/ACETAMINOPHEN 10-325 MG TABLET PO PRN (22:23)
[2018-07-31 23:59] VITALS: BP 111/69
[2018-08-01] MEDS: ACETAMINOPHEN 500 MG TABLET PO SCH ×3 (00:42→16:49)
[2018-08-01] MEDS ORDERED: SODIUM CHLORIDE 0.9% 100 ML ONE (00:49)
[2018-08-01] MEDS: HYDROmorphone HCL 2 MG TABLET PO PRN ×3 (01:50→21:47)
[2018-08-01] MEDS: PIPERACILLIN/TAZO 3.375 GM/D5W 50 ML IV SCH ×4 (02:41→21:36)
[2018-08-01] MEDS: WATER IV SCH ×2 (02:42→14:48)
[2018-08-01] MEDS: DEXTROSE 5% IV SCH ×2 (02:42→14:48)
[2018-08-01] MEDS: VORICONAZOLE IV SCH ×2 (02:42→14:48)
[2018-08-01 04:26] VITALS: BP 129/69
[2018-08-01] MEDS ORDERED: ONDANSETRON HCL 4 MG/2 ML VIAL IVP ONE (05:52)
[2018-08-01] MEDS ORDERED: FentaNYL CITRATE-PF 100 MCG/2 ML VIAL IVP ONE (05:52)
[2018-08-01] MEDS ORDERED: PROPOFOL 1% 20 ML VIAL IVP ONE (05:52)
[2018-08-01] MEDS ORDERED: MIDAZOLAM HCL 2 MG/2 ML VIAL IVP ONE (05:52)
[2018-08-01] MEDS ORDERED: LIDOCAINE/PF 2% 5 ML VIAL IM ONE (05:52)
[2018-08-01] MEDS: MULTIVITAMINS WITH MINERALS, THERAPEUTIC TABLET PO SCH (08:04)
[2018-08-01] MEDS: METHADONE HCL 10 MG TABLET PO SCH (08:04)
[2018-08-01] MEDS: PANTOPRAZOLE SODIUM 40 MG DR TABLET PO SCH (08:04)
[2018-08-01 08:22] VITALS: BP 129/97
[2018-08-01] MEDS: DOCUSATE SODIUM 100 MG CAPSULE PO SCH ×2 (09:00→21:37)
[2018-08-01] MEDS ORDERED: SODIUM CHLORIDE 0.9% 250 ML IV ONE (09:02)
[2018-08-01] MEDS: FERROUS SULFATE 325 MG EC TABLET PO SCH ×3 (11:08→18:06)
[2018-08-01] MEDS: SODIUM CHLORIDE 0.9% 1,000 ML IV SCH ×2 (11:10→18:08)
[2018-08-01 11:58] VITALS: BP 124/77
[2018-08-01 16:03] VITALS: BP 115/71
[2018-08-01 21:00] VITALS: BP 126/71
[2018-08-01] MEDS ORDERED: SODIUM CHLORIDE 0.9% 500 ML IV ONE (21:14)
[2018-08-01 23:44] VITALS: BP 122/70
[2018-08-02] MEDS: ACETAMINOPHEN 500 MG TABLET PO SCH ×4 (00:12→23:25)
[2018-08-02] MEDS: WATER IV SCH ×2 (00:52→14:26)
[2018-08-02] MEDS: DEXTROSE 5% IV SCH ×2 (00:52→14:26)
[2018-08-02] MEDS: VORICONAZOLE IV SCH ×2 (00:52→14:26)
[2018-08-02 04:47] VITALS: BP 128/62
[2018-08-02] MEDS: PIPERACILLIN/TAZO 3.375 GM/D5W 50 ML IV SCH ×3 (05:48→18:52)
[2018-08-02 07:07] LABS: ANION GAP 6 mmol/L (8-16); CALCIUM, TOTAL 8.5 mg/dL (8.8-10.5); CARBON DIOXIDE 30 mmol/L (22-29); CHLORIDE 103 mmol/L (98-107); CREATININE 1.05 mg/dL (0.60-1.30); GLOMERULAR FILTR. RATE CALC > 60 mL/min (>60); GLUCOSE,RANDOM 81 mg/dL (70-110); PHOSPHORUS 3.9 mg/dL (2.5-4.9); POTASSIUM 3.6 mmol/L (3.5-5.1); SODIUM SERUM 139 mmol/L (136-145); UREA NITROGEN, BLOOD 13 mg/dL (7-18)
[2018-08-02 07:25] VITALS: BP 122/70
[2018-08-02] MEDS ORDERED: MAGNESIUM SULFATE 3 GM in DEXTROSE 5%-WATER 100 ML IV ONE (08:15)
[2018-08-02] MEDS: DOCUSATE SODIUM 100 MG CAPSULE PO SCH ×2 (08:18→20:29)
[2018-08-02] MEDS: MULTIVITAMINS WITH MINERALS, THERAPEUTIC TABLET PO SCH (08:18)
[2018-08-02] MEDS: CYCLOBENZAPRINE HCL 10 MG TABLET PO PRN (08:18)
[2018-08-02] MEDS: METHADONE HCL 10 MG TABLET PO SCH (08:18)
[2018-08-02] MEDS: HYDROmorphone HCL 2 MG TABLET PO PRN ×2 (08:18→16:03)
[2018-08-02] MEDS: PANTOPRAZOLE SODIUM 40 MG DR TABLET PO SCH (08:18)
[2018-08-02] MEDS: FERROUS SULFATE 325 MG EC TABLET PO SCH ×3 (08:19→16:03)
[2018-08-02 11:25] VITALS: BP 140/85
[2018-08-02 15:55] VITALS: BP 107/66
[2018-08-02 20:18] VITALS: BP 106/62
[2018-08-03] VITALS (7 sets, daily range): BP systolic 106–135; BP diastolic 64–78
[2018-08-03] MEDS: PIPERACILLIN/TAZO 3.375 GM/D5W 50 ML IV SCH ×4 (00:53→18:05)
[2018-08-03] MEDS: VORICONAZOLE IV SCH ×2 (01:32→14:02)
[2018-08-03] MEDS: DEXTROSE 5% IV SCH ×2 (01:32→14:02)
[2018-08-03] MEDS: WATER IV SCH ×2 (01:32→14:02)
[2018-08-03] MEDS: HYDROmorphone HCL 2 MG TABLET PO PRN ×4 (05:21→21:46)
[2018-08-03 07:12] LABS: BASOPHILS % (AUTO) 0.3 % (0.0-2.0); EOSINOPHILS % (AUTO) 3.5 % (1.0-6.0); HEMATOCRIT 26.5 % (41-53); HEMOGLOBIN 8.8 g/dL (13.5-17.5); LYMPHOCYTES # (AUTO) 1.7 K/uL (1.0-4.8); LYMPHOCYTES % (AUTO) 27.5 % (22.0-44.0); MEAN CORPUSCULAR HEMOGLOBIN 27.8 pg (26.0-34.0); MEAN CORPUSCULAR HGB CONC 33.1 G/dL (31.0-37.0); MEAN CORPUSCULAR VOLUME 84 fL (80-100); MONOCYTES # (AUTO) 0.5 K/uL (0.1-1.0); MONOCYTES % (AUTO) 8.4 % (2.0-9.0); NEUTROPHILS # (AUTO) 3.8 K/uL (1.8-7.7); NEUTROPHILS % (AUTO) 60.3 % (40.0-70.0); PLATELET COUNT (AUTO) 243 K/uL (150-450); RED BLOOD CELL COUNT(AUTO) 3.16 MIL/uL (4.50-5.90); RED CELL DISTRIBUTION WIDTH 14.7 % (11.5-14.5)
[2018-08-03 07:22] LABS: ANION GAP 8 mmol/L (8-16); CALCIUM, TOTAL 8.1 mg/dL (8.8-10.5); CARBON DIOXIDE 28 mmol/L (22-29); CHLORIDE 105 mmol/L (98-107); CREATININE 0.98 mg/dL (0.60-1.30); GLOMERULAR FILTR. RATE CALC > 60 mL/min (>60); GLUCOSE,RANDOM 79 mg/dL (70-110); PHOSPHORUS 3.5 mg/dL (2.5-4.9); POTASSIUM 3.8 mmol/L (3.5-5.1); SODIUM SERUM 141 mmol/L (136-145); UREA NITROGEN, BLOOD 14 mg/dL (7-18)
[2018-08-03] MEDS: DOCUSATE SODIUM 100 MG CAPSULE PO SCH ×2 (09:00→21:00)
[2018-08-03] MEDS: ACETAMINOPHEN 500 MG TABLET PO SCH ×2 (09:16→17:25)
[2018-08-03] MEDS: METHADONE HCL 10 MG TABLET PO SCH (09:16)
[2018-08-03] MEDS: MULTIVITAMINS WITH MINERALS, THERAPEUTIC TABLET PO SCH (09:16)
[2018-08-03] MEDS: PANTOPRAZOLE SODIUM 40 MG DR TABLET PO SCH (09:17)
[2018-08-03] MEDS: FERROUS SULFATE 325 MG EC TABLET PO SCH ×3 (09:17→17:25)
[2018-08-03] MEDS ORDERED: MAGNESIUM SULFATE 3 GM in DEXTROSE 5%-WATER 100 ML IV ONE (11:30)
[2018-08-04] MEDS: ACETAMINOPHEN 500 MG TABLET PO SCH ×4 (00:01→23:28)
[2018-08-04] MEDS: PIPERACILLIN/TAZO 3.375 GM/D5W 50 ML IV SCH ×5 (00:02→23:27)
[2018-08-04] MEDS: DEXTROSE 5% IV SCH ×2 (03:16→13:15)
[2018-08-04] MEDS: WATER IV SCH ×2 (03:16→13:15)
[2018-08-04] MEDS: VORICONAZOLE IV SCH ×2 (03:16→13:15)
[2018-08-04 05:18] VITALS: BP 125/85
[2018-08-04] MEDS ORDERED: SODIUM CHLORIDE 0.9% 250 ML IV ONE (06:37)
[2018-08-04 08:10] VITALS: BP 106/58
[2018-08-04] MEDS: METHADONE HCL 10 MG TABLET PO SCH (08:29)
[2018-08-04] MEDS: FERROUS SULFATE 325 MG EC TABLET PO SCH ×3 (08:29→17:31)
[2018-08-04] MEDS: MULTIVITAMINS WITH MINERALS, THERAPEUTIC TABLET PO SCH (08:29)
[2018-08-04] MEDS: PANTOPRAZOLE SODIUM 40 MG DR TABLET PO SCH (08:33)
[2018-08-04] MEDS: DOCUSATE SODIUM 100 MG CAPSULE PO SCH ×2 (09:00→21:00)
[2018-08-04 11:52] VITALS: BP 110/71
[2018-08-04] MEDS: HYDROmorphone HCL 2 MG TABLET PO PRN ×2 (11:59→17:30)
[2018-08-04 15:42] VITALS: BP 122/69
[2018-08-04] MEDS: OXYGEN THERAPY IH SCH (20:00)
[2018-08-04 20:10] VITALS: BP 142/85
[2018-08-05 00:10] VITALS: BP 129/80
[2018-08-05] MEDS: VORICONAZOLE IV SCH ×2 (01:14→14:27)
[2018-08-05] MEDS: WATER IV SCH ×2 (01:14→14:27)
[2018-08-05] MEDS: ZOLPIDEM TARTRATE 10 MG TABLET PO PRN (01:14)
[2018-08-05] MEDS: DEXTROSE 5% IV SCH ×2 (01:14→14:27)
[2018-08-05 04:10] VITALS: BP 127/77
[2018-08-05] MEDS: PIPERACILLIN/TAZO 3.375 GM/D5W 50 ML IV SCH ×3 (05:28→18:00)
[2018-08-05 07:15] VITALS: BP 148/87
[2018-08-05] MEDS: OXYGEN THERAPY IH SCH ×2 (08:00→20:00)
[2018-08-05] MEDS: METHADONE HCL 10 MG TABLET PO SCH (08:15)
[2018-08-05] MEDS: MULTIVITAMINS WITH MINERALS, THERAPEUTIC TABLET PO SCH (08:15)
[2018-08-05] MEDS: ACETAMINOPHEN 500 MG TABLET PO SCH ×2 (08:15→16:13)
[2018-08-05] MEDS: CYCLOBENZAPRINE HCL 10 MG TABLET PO PRN (08:15)
[2018-08-05] MEDS: PANTOPRAZOLE SODIUM 40 MG DR TABLET PO SCH (08:15)
[2018-08-05] MEDS: FERROUS SULFATE 325 MG EC TABLET PO SCH ×3 (08:15→18:00)
[2018-08-05] MEDS: DOCUSATE SODIUM 100 MG CAPSULE PO SCH ×2 (08:30→20:12)
[2018-08-05 08:40] LABS: BASOPHILS % (AUTO) 0.2 % (0.0-2.0); EOSINOPHILS % (AUTO) 2.6 % (1.0-6.0); HEMATOCRIT 30.6 % (41-53); LYMPHOCYTES # (AUTO) 1.4 K/uL (1.0-4.8); LYMPHOCYTES % (AUTO) 25.7 % (22.0-44.0); MEAN CORPUSCULAR HEMOGLOBIN 27.5 pg (26.0-34.0); MEAN CORPUSCULAR HGB CONC 32.9 G/dL (31.0-37.0); MEAN CORPUSCULAR VOLUME 84 fL (80-100); MONOCYTES # (AUTO) 0.4 K/uL (0.1-1.0); MONOCYTES % (AUTO) 7.8 % (2.0-9.0); NEUTROPHILS # (AUTO) 3.6 K/uL (1.8-7.7); NEUTROPHILS % (AUTO) 63.7 % (40.0-70.0); PLATELET COUNT (AUTO) 313 K/uL (150-450); RED BLOOD CELL COUNT(AUTO) 3.66 MIL/uL (4.50-5.90)
[2018-08-05 08:56] LABS: % IRON SATURATION 12.5 % (30-44)
[2018-08-05 09:09] LABS: ANION GAP 7 mmol/L (8-16); CALCIUM, TOTAL 8.6 mg/dL (8.8-10.5); CARBON DIOXIDE 29 mmol/L (22-29); CHLORIDE 103 mmol/L (98-107); CREATININE 1.07 mg/dL (0.60-1.30); FERRITIN 117 ng/mL (26-388); GLOMERULAR FILTR. RATE CALC > 60 mL/min (>60); GLUCOSE,RANDOM 105 mg/dL (70-110); POTASSIUM 3.9 mmol/L (3.5-5.1); SODIUM SERUM 139 mmol/L (136-145); UREA NITROGEN, BLOOD 15 mg/dL (7-18)
[2018-08-05] MEDS: HYDROmorphone HCL 2 MG TABLET PO PRN ×4 (10:53→18:00)
[2018-08-05 11:47] VITALS: BP 128/84
[2018-08-05 15:10] VITALS: BP 135/79
[2018-08-05] MEDS ORDERED: OxyCODONE HCL 10 MG ER TABLET PO PRN (15:45)
[2018-08-05 19:50] VITALS: BP 132/84
[2018-08-05] MEDS: OxyCODONE HCL 10 MG ER TABLET PO SCH (20:10)
[2018-08-06] VITALS (7 sets, daily range): BP systolic 120–148; BP diastolic 71–90
[2018-08-06] MEDS: PIPERACILLIN/TAZO 3.375 GM/D5W 50 ML IV SCH ×5 (00:13→23:33)
[2018-08-06] MEDS: HYDROmorphone HCL 2 MG TABLET PO PRN ×4 (00:19→15:45)
[2018-08-06] MEDS: DEXTROSE 5% IV SCH ×2 (00:56→13:18)
[2018-08-06] MEDS: VORICONAZOLE IV SCH ×2 (00:56→13:18)
[2018-08-06] MEDS: WATER IV SCH ×2 (00:56→13:18)
[2018-08-06] MEDS: ZOLPIDEM TARTRATE 10 MG TABLET PO PRN (01:48)
[2018-08-06] MEDS ORDERED: SODIUM CHLORIDE 0.9% 250 ML IV ONE (05:42)
[2018-08-06] MEDS: OXYGEN THERAPY IH SCH ×2 (08:00→20:00)
[2018-08-06] MEDS: ACETAMINOPHEN 500 MG TABLET PO SCH ×4 (08:00→23:30)
[2018-08-06] MEDS: FERROUS SULFATE 325 MG EC TABLET PO SCH ×3 (08:03→18:03)
[2018-08-06] MEDS: METHADONE HCL 10 MG TABLET PO SCH (08:04)
[2018-08-06] MEDS: OxyCODONE HCL 10 MG ER TABLET PO SCH ×2 (08:04→20:06)
[2018-08-06] MEDS: PANTOPRAZOLE SODIUM 40 MG DR TABLET PO SCH (08:04)
[2018-08-06] MEDS: MULTIVITAMINS WITH MINERALS, THERAPEUTIC TABLET PO SCH (08:04)
[2018-08-06] MEDS: DOCUSATE SODIUM 100 MG CAPSULE PO SCH ×2 (08:10→19:58)
[2018-08-06] MEDS: CYCLOBENZAPRINE HCL 10 MG TABLET PO PRN (11:42)
[2018-08-06 13:38] LABS: ANION GAP 6 mmol/L (8-16); CALCIUM, TOTAL 8.8 mg/dL (8.8-10.5); CARBON DIOXIDE 29 mmol/L (22-29); CHLORIDE 103 mmol/L (98-107); CREATININE 0.97 mg/dL (0.60-1.30); GLOMERULAR FILTR. RATE CALC > 60 mL/min (>60); GLUCOSE,RANDOM 70 mg/dL (70-110); PHOSPHORUS 4.4 mg/dL (2.5-4.9); POTASSIUM 4.2 mmol/L (3.5-5.1); SODIUM SERUM 138 mmol/L (136-145); UREA NITROGEN, BLOOD 15 mg/dL (7-18)
[2018-08-07] MEDS: VORICONAZOLE IV SCH ×2 (00:39→14:28)
[2018-08-07] MEDS: WATER IV SCH ×2 (00:39→14:28)
[2018-08-07] MEDS: DEXTROSE 5% IV SCH ×2 (00:39→14:28)
[2018-08-07] MEDS: HYDROmorphone HCL 2 MG TABLET PO PRN ×3 (00:41→16:18)
[2018-08-07 05:13] VITALS: BP 117/61
[2018-08-07] MEDS: PIPERACILLIN/TAZO 3.375 GM/D5W 50 ML IV SCH ×3 (05:56→21:16)
[2018-08-07 06:52] LABS: APPEARANCE,URINE CLEAR (CLEAR); BILIRUBIN,URINE NEGATIVE (NEGATIVE); GLUCOSE, URINE (UA) NEGATIVE (NEGATIVE); KETONES,URINE NEGATIVE (NEGATIVE); LEUKOCYTE ESTERASE ,URINE NEGATIVE (NEGATIVE); NITRATE,URINE NEGATIVE (NEGATIVE); OCCULT BLOOD,URINE NEGATIVE (NEGATIVE); PH,URINE 7.5 (5.0-8.0); PROTEIN,URINE NEGATIVE (NEGATIVE); UROBILINOGEN,URINE 0.2 mg/dL (<=1.0)
[2018-08-07 07:08] LABS: BACTERIA,URINE None Seen /HPF (None Seen); RBC,URINE 0-2 /HPF (0-2); SQUAMOUS EPITHELIAL CELL,UR Few /LPF (None Seen); WBC,URINE 0-2 /HPF (0-5)
[2018-08-07] MEDS: OXYGEN THERAPY IH SCH (08:00)
[2018-08-07 08:03] VITALS: BP 121/63
[2018-08-07] MEDS: OxyCODONE HCL 10 MG ER TABLET PO SCH ×2 (08:10→21:16)
[2018-08-07] MEDS: FERROUS SULFATE 325 MG EC TABLET PO SCH ×3 (08:10→16:19)
[2018-08-07] MEDS: METHADONE HCL 10 MG TABLET PO SCH (08:10)
[2018-08-07] MEDS: MULTIVITAMINS WITH MINERALS, THERAPEUTIC TABLET PO SCH (08:10)
[2018-08-07] MEDS: PANTOPRAZOLE SODIUM 40 MG DR TABLET PO SCH (08:10)
[2018-08-07] MEDS: ACETAMINOPHEN 500 MG TABLET PO SCH ×2 (08:10→16:00)
[2018-08-07] MEDS: DOCUSATE SODIUM 100 MG CAPSULE PO SCH ×2 (08:11→21:00)
[2018-08-07] MEDS: HYDROmorphone 2 MG/ML SYRINGE IVP PRN (08:23)
[2018-08-07 11:35] VITALS: BP 118/60
[2018-08-07 15:46] VITALS: BP 116/66
[2018-08-07] MEDS ORDERED: ALTEPLASE 2 MG/VIAL IVCATH ONE (18:45)
[2018-08-07 19:34] VITALS: BP 132/87
[2018-08-07 23:35] VITALS: BP 144/84
[2018-08-08] MEDS: VORICONAZOLE IV SCH ×2 (01:12→14:16)
[2018-08-08] MEDS: DEXTROSE 5% IV SCH ×2 (01:12→14:16)
[2018-08-08] MEDS: WATER IV SCH ×2 (01:12→14:16)
[2018-08-08] MEDS: PIPERACILLIN/TAZO 3.375 GM/D5W 50 ML IV SCH ×4 (02:16→18:23)
[2018-08-08 05:08] VITALS: BP 123/69
[2018-08-08 07:53] VITALS: BP 123/75
[2018-08-08] MEDS: ACETAMINOPHEN 500 MG TABLET PO SCH ×3 (08:00→16:00)
[2018-08-08] MEDS: OXYGEN THERAPY IH SCH (08:00)
[2018-08-08] MEDS: DOCUSATE SODIUM 100 MG CAPSULE PO SCH ×2 (09:00→20:36)
[2018-08-08] MEDS: METHADONE HCL 10 MG TABLET PO SCH (09:13)
[2018-08-08] MEDS: MULTIVITAMINS WITH MINERALS, THERAPEUTIC TABLET PO SCH (09:13)
[2018-08-08] MEDS: FERROUS SULFATE 325 MG EC TABLET PO SCH ×3 (09:13→18:22)
[2018-08-08] MEDS: PANTOPRAZOLE SODIUM 40 MG DR TABLET PO SCH (09:13)
[2018-08-08] MEDS: OxyCODONE HCL/ACETAMINOPHEN 10-325 MG TABLET PO PRN (09:16)
[2018-08-08] MEDS: OxyCODONE HCL 10 MG ER TABLET PO SCH ×2 (09:23→20:36)
[2018-08-08 10:32] LABS: BASOPHILS % (AUTO) 1.5 % (0.0-2.0); EOSINOPHILS % (AUTO) 1.9 % (1.0-6.0); HEMATOCRIT 30.8 % (41-53); HEMOGLOBIN 10.3 g/dL (13.5-17.5); LYMPHOCYTES # (AUTO) 1.7 K/uL (1.0-4.8); LYMPHOCYTES % (AUTO) 26.4 % (22.0-44.0); MEAN CORPUSCULAR HEMOGLOBIN 27.7 pg (26.0-34.0); MEAN CORPUSCULAR HGB CONC 33.4 G/dL (31.0-37.0); MEAN CORPUSCULAR VOLUME 83 fL (80-100); MONOCYTES # (AUTO) 0.7 K/uL (0.1-1.0); MONOCYTES % (AUTO) 10.1 % (2.0-9.0); NEUTROPHILS # (AUTO) 3.9 K/uL (1.8-7.7); NEUTROPHILS % (AUTO) 60.1 % (40.0-70.0); PLATELET COUNT (AUTO) 330 K/uL (150-450); RED BLOOD CELL COUNT(AUTO) 3.71 MIL/uL (4.50-5.90); RED CELL DISTRIBUTION WIDTH 14.8 % (11.5-14.5)
[2018-08-08 10:48] LABS: ALANINE AMINOTRANSFERASE 18 U/L (12-78); ALBUMIN 2.6 g/dL (3.4-5.0); ALKALINE PHOSPHATASE 56 U/L (46-116); ANION GAP 6 mmol/L (8-16); ASPARTATE AMINOTRANSFERASE 26 U/L (15-37); BILIRUBIN,TOTAL 0.2 mg/dL (0.1-1.0); CARBON DIOXIDE 29 mmol/L (22-29); CHLORIDE 103 mmol/L (98-107); CREATININE 1.05 mg/dL (0.60-1.30); GLOMERULAR FILTR. RATE CALC > 60 mL/min (>60); GLUCOSE,RANDOM 87 mg/dL (70-110); SODIUM SERUM 138 mmol/L (136-145); TOTAL PROTEIN, SERUM 7.5 g/dL (6.4-8.2); UREA NITROGEN, BLOOD 15 mg/dL (7-18)
[2018-08-08 11:38] VITALS: BP 130/83
[2018-08-08] MEDS: HYDROmorphone 2 MG/ML SYRINGE IVP PRN (16:36)
[2018-08-08 19:35] VITALS: BP 124/78
[2018-08-08 23:25] VITALS: BP 128/80
[2018-08-09] MEDS: PIPERACILLIN/TAZO 3.375 GM/D5W 50 ML IV SCH ×5 (00:23→23:57)
[2018-08-09] MEDS: ACETAMINOPHEN 500 MG TABLET PO SCH ×4 (00:25→23:30)
[2018-08-09] MEDS: VORICONAZOLE IV SCH ×2 (02:00→15:37)
[2018-08-09] MEDS: DEXTROSE 5% IV SCH ×2 (02:00→15:37)
[2018-08-09] MEDS: WATER IV SCH ×2 (02:00→15:37)
[2018-08-09 03:30] VITALS: BP 126/78
[2018-08-09 07:26] VITALS: BP 129/81
[2018-08-09] MEDS: METHADONE HCL 10 MG TABLET PO SCH (08:28)
[2018-08-09] MEDS: PANTOPRAZOLE SODIUM 40 MG DR TABLET PO SCH (08:28)
[2018-08-09] MEDS: MULTIVITAMINS WITH MINERALS, THERAPEUTIC TABLET PO SCH (08:29)
[2018-08-09] MEDS: DOCUSATE SODIUM 100 MG CAPSULE PO SCH ×2 (08:29→21:00)
[2018-08-09] MEDS: CYCLOBENZAPRINE HCL 10 MG TABLET PO PRN (08:29)
[2018-08-09] MEDS: FERROUS SULFATE 325 MG EC TABLET PO SCH ×3 (08:29→17:57)
[2018-08-09] MEDS: OxyCODONE HCL 10 MG ER TABLET PO SCH ×3 (08:30→23:51)
[2018-08-09] MEDS: HYDROmorphone 2 MG/ML SYRINGE IVP PRN ×2 (09:47→21:24)
[2018-08-09 12:31] VITALS: BP 115/67
[2018-08-09 15:32] VITALS: BP 127/69
[2018-08-09] MEDS ORDERED: SODIUM CHLORIDE 0.9% 500 ML IV ONE ×2 (16:09→18:00)
[2018-08-09] MEDS: HYDROmorphone HCL 2 MG TABLET PO PRN (18:18)
[2018-08-09 19:09] VITALS: BP 106/61
[2018-08-09 23:45] VITALS: BP 136/79
[2018-08-10] MEDS: WATER IV SCH ×2 (02:36→13:32)
[2018-08-10] MEDS: DEXTROSE 5% IV SCH ×2 (02:36→13:32)
[2018-08-10] MEDS: VORICONAZOLE IV SCH ×2 (02:36→13:32)
[2018-08-10 04:39] VITALS: BP 121/71
[2018-08-10] MEDS: PIPERACILLIN/TAZO 3.375 GM/D5W 50 ML IV SCH ×3 (05:51→18:35)
[2018-08-10 07:50] VITALS: BP 124/70
[2018-08-10] MEDS: DOCUSATE SODIUM 100 MG CAPSULE PO SCH ×2 (09:00→20:24)
[2018-08-10] MEDS: OxyCODONE HCL 10 MG ER TABLET PO SCH ×2 (09:05→20:23)
[2018-08-10] MEDS: FERROUS SULFATE 325 MG EC TABLET PO SCH ×3 (09:05→18:35)
[2018-08-10] MEDS: METHADONE HCL 10 MG TABLET PO SCH (09:06)
[2018-08-10] MEDS: CYCLOBENZAPRINE HCL 10 MG TABLET PO PRN (09:06)
[2018-08-10] MEDS: PANTOPRAZOLE SODIUM 40 MG DR TABLET PO SCH (09:06)
[2018-08-10] MEDS: ACETAMINOPHEN 500 MG TABLET PO SCH ×2 (09:06→16:00)
[2018-08-10 09:32] LABS: ANION GAP 9 mmol/L (8-16); CALCIUM, TOTAL 9.4 mg/dL (8.8-10.5); CARBON DIOXIDE 28 mmol/L (22-29); CHLORIDE 106 mmol/L (98-107); CREATININE 1.13 mg/dL (0.60-1.30); GLOMERULAR FILTR. RATE CALC > 60 mL/min (>60); GLUCOSE,RANDOM 102 mg/dL (70-110); POTASSIUM 3.5 mmol/L (3.5-5.1); SODIUM SERUM 143 mmol/L (136-145); UREA NITROGEN, BLOOD 12 mg/dL (7-18)
[2018-08-10] MEDS: MULTIVITAMINS WITH MINERALS, THERAPEUTIC TABLET PO SCH (10:13)
[2018-08-10] MEDS: HYDROmorphone 2 MG/ML SYRINGE IVP PRN (10:44)
[2018-08-10 11:50] VITALS: BP 132/68
[2018-08-10] MEDS: HYDROmorphone HCL 2 MG TABLET PO PRN (13:06)
[2018-08-10 15:19] VITALS: BP 136/74
[2018-08-10 19:48] VITALS: BP 111/63
[2018-08-10 23:30] VITALS: BP 116/72
[2018-08-11] MEDS: PIPERACILLIN/TAZO 3.375 GM/D5W 50 ML IV SCH ×3 (01:22→12:13)
[2018-08-11] MEDS: WATER IV SCH ×2 (02:09→14:59)
[2018-08-11] MEDS: VORICONAZOLE IV SCH ×2 (02:09→14:59)
[2018-08-11] MEDS: DEXTROSE 5% IV SCH ×2 (02:09→14:59)
[2018-08-11 05:06] VITALS: BP 125/77
[2018-08-11] MEDS: OxyCODONE HCL 10 MG ER TABLET PO SCH (07:28)
[2018-08-11] MEDS: ACETAMINOPHEN 500 MG TABLET PO SCH ×3 (08:00→16:00)
[2018-08-11 08:05] VITALS: BP 133/85
[2018-08-11] MEDS: PANTOPRAZOLE SODIUM 40 MG DR TABLET PO SCH (08:21)
[2018-08-11] MEDS: FERROUS SULFATE 325 MG EC TABLET PO SCH ×3 (08:21→18:18)
[2018-08-11] MEDS: MULTIVITAMINS WITH MINERALS, THERAPEUTIC TABLET PO SCH (08:21)
[2018-08-11] MEDS: METHADONE HCL 10 MG TABLET PO SCH (08:22)
[2018-08-11] MEDS: DOCUSATE SODIUM 100 MG CAPSULE PO SCH (09:00)
[2018-08-11] MEDS: HYDROmorphone HCL 2 MG TABLET PO PRN ×2 (10:46→18:27)
[2018-08-11 11:01] VITALS: BP 142/81
[2018-08-11] MEDS ORDERED: OXYC10 PO (12:30)
[2018-08-11] MEDS ORDERED: DSS100 PO (12:30)
[2018-08-11] MEDS ORDERED: METH10 PO (12:31)
[2018-08-11 16:13] VITALS: BP 98/54
== END 2018-08-11 19:30 | disposition home or self-care (01) | DRG 710 ==
LOC: EMS 08:13 → 4E 17:00 → 6N 07-18 15:00 → 5N 07-22 18:45 → 4E 08-01 20:17 → 6N 08-09 16:55
PROVIDERS: ADMIT Internal Medicine; ATTEND Internal Medicine
PROC: 0J9F00Z Drainage of Left Upper Arm Subcutaneous Tissue and Fascia with Drainage Device, Open Approach (ICD-10-PCS; principal; 2018-07-11)
PROC: 2W1BX6Z Compression of Left Upper Arm using Pressure Dressing (ICD-10-PCS; 2018-07-11)
PROC: 0JBF0ZZ Excision of Left Upper Arm Subcutaneous Tissue and Fascia, Open Approach (ICD-10-PCS; 2018-07-11)
PROC: B54MZZA Ultrasonography of Right Upper Extremity Veins, Guidance (ICD-10-PCS; 2018-07-13)
PROC: 05HY33Z Insertion of Infusion Device into Upper Vein, Percutaneous Approach (ICD-10-PCS; 2018-07-13)
PROC: B54MZZA Ultrasonography of Right Upper Extremity Veins, Guidance (ICD-10-PCS; 2018-07-18)
PROC: 05HY33Z Insertion of Infusion Device into Upper Vein, Percutaneous Approach (ICD-10-PCS; 2018-07-18)
PROC: 0KD Muscles, Extraction (ICD-10-PCS; 2018-07-21)
PROC: 0XP Anatomical Regions, Upper Extremities, Removal (ICD-10-PCS; 2018-07-23)
PROC: 30233N1 Transfusion of Nonautologous Red Blood Cells into Peripheral Vein, Percutaneous Approach (ICD-10-PCS; 2018-07-28)
PROC: 0HRCX74 Replacement of Left Upper Arm Skin with Autologous Tissue Substitute, Partial Thickness, External Approach (ICD-10-PCS; 2018-07-31)
PROC: 0HBJXZZ Excision of Left Upper Leg Skin, External Approach (ICD-10-PCS; 2018-07-31)
PROC: 0KB80ZZ Excision of Left Upper Arm Muscle, Open Approach (ICD-10-PCS; 2018-07-31)
DX: A41.9 Sepsis, unspecified organism (principal); E43 Unspecified severe protein-calorie malnutrition; J18.9 Pneumonia, unspecified organism; N17.9 Acute kidney failure, unspecified; B49 Unspecified mycosis; E22.2 Syndrome of inappropriate secretion of antidiuretic hormone; L02.414 Cutaneous abscess of left upper limb; L03.114 Cellulitis of left upper limb; F19.10 Other psychoactive substance abuse, uncomplicated; M60.9 Myositis, unspecified; D63.8 Anemia in other chronic diseases classified elsewhere; E87.6 Hypokalemia; E83.42 Hypomagnesemia; B96.5 Pseudomonas (aeruginosa) (mallei) (pseudomallei) as the cause of diseases classified elsewhere; F15.90 Other stimulant use, unspecified, uncomplicated; F17.210 Nicotine dependence, cigarettes, uncomplicated; F12.90 Cannabis use, unspecified, uncomplicated; B96.89 Other specified bacterial agents as the cause of diseases classified elsewhere; B95.4 Other streptococcus as the cause of diseases classified elsewhere; D50.9 Iron deficiency anemia, unspecified; F11.20 Opioid dependence, uncomplicated; Z91.19 Patient's noncompliance with other medical treatment and regimen; Z68.24 Body mass index [BMI] 24.0-24.9, adult
CPT/HCPCS: 36245; 36569; 73201; 73218; 76937; 80307; 82570; 82728; 83036; 83540; 83550; 83605; 83735; 83930; 83935; 84100; 84156; 84300; 86850; 86900; 86901; 86920; 87040; 87070; 87081; 87086; 87106; 87186; 87205; 87449; 87899; 88304; 93005; 93306; 93970; 96365; 96366; 96375; 97116; 97162; 97530; A9585; G0378; J0131; J0287; J0330; J0690; J0696; J1100; J1170; J1200; J1885; J2175; J2250; J2270; J2405; J2543; J2704; J2997; J3010; J3370; J3465; J3475; J3490; J7030; J7040; J7050; J7060; J7120; P9016

== ENCOUNTER → 2018-08-14 | Outpatient (CLI) | payer MEDICAID ==
[~2018-08-14] VITALS: Ht 185.4 cm; Wt 86.3 kg
[~2018-08-14] MED LIST changes: -BACTDSB PO; -CEPH500 PO; +DSS100 PO; -KEFLEX PO; +METH10 PO; +OXYC10 PO; -TRAM50TA4 PO
[2018-08-14 09:26] VITALS: BP 134/89
== END | disposition home or self-care (01) ==
LOC: HBOWC 08:58
PROVIDERS: ATTEND Surgery Plastic and Reconstructive Surgery
DX: S41.102D Unspecified open wound of left upper arm, subsequent encounter (principal); D50.9 Iron deficiency anemia, unspecified; E43 Unspecified severe protein-calorie malnutrition; F17.210 Nicotine dependence, cigarettes, uncomplicated; F12.90 Cannabis use, unspecified, uncomplicated; F19.10 Other psychoactive substance abuse, uncomplicated; F15.90 Other stimulant use, unspecified, uncomplicated; Z72.89 Other problems related to lifestyle; Z68.24 Body mass index [BMI] 24.0-24.9, adult; Z59.0 Homelessness; W26.8XXD Contact with other sharp object(s), not elsewhere classified, subsequent encounter

== ENCOUNTER 2018-10-28 16:43 | Emergency (ER) | payer MEDICAID ==
[~2018-10-28] VITALS: Ht 188 cm; Wt 84.1 kg
[2018-10-28] MEDS ORDERED: 0.9% SODIUM CHLORIDE 10 ML SYRINGE IVP PRN (17:30)
[2018-10-28 18:08] LABS: BASOPHILS % (AUTO) 0.4 % (0.0-2.0); EOSINOPHILS % (AUTO) 0 % (1.0-6.0); HEMOGLOBIN 12.4 g/dL (13.5-17.5); LYMPHOCYTES # (AUTO) 1.2 K/uL (1.0-4.8); LYMPHOCYTES % (AUTO) 8.6 % (22.0-44.0); MEAN CORPUSCULAR HEMOGLOBIN 26.7 pg (26.0-34.0); MEAN CORPUSCULAR HGB CONC 32.6 G/dL (31.0-37.0); MEAN CORPUSCULAR VOLUME 82 fL (80-100); MONOCYTES # (AUTO) 0.8 K/uL (0.1-1.0); MONOCYTES % (AUTO) 6.2 % (2.0-9.0); NEUTROPHILS # (AUTO) 11.6 K/uL (1.8-7.7); NEUTROPHILS % (AUTO) 84.8 % (40.0-70.0); PLATELET COUNT (AUTO) 219 K/uL (150-450); RED BLOOD CELL COUNT(AUTO) 4.65 MIL/uL (4.50-5.90); RED CELL DISTRIBUTION WIDTH 13.9 % (11.5-14.5)
[2018-10-28 18:19] LABS: PROTHROMBIN TIME 10.6 SEC (9.4-11.6)
[2018-10-28 18:23] LABS: ANION GAP 9 mmol/L (8-16); CARBON DIOXIDE 26 mmol/L (22-29); CHLORIDE 97 mmol/L (98-107); CREATININE 1.17 mg/dL (0.60-1.30); GLOMERULAR FILTR. RATE CALC > 60 mL/min (>60); GLUCOSE,RANDOM 127 mg/dL (70-110); POTASSIUM 3.7 mmol/L (3.5-5.1); SODIUM SERUM 132 mmol/L (136-145); UREA NITROGEN, BLOOD 19 mg/dL (7-18)
[2018-10-28 18:27] LABS: INFLUENZA TYPE A NEGATIVE FOR TYPE A (NEGATIVE); INFLUENZA TYPE B NEGATIVE FOR TYPE B (NEGATIVE)
[2018-10-28 18:30] LABS: ALANINE AMINOTRANSFERASE 18 U/L (12-78); ALBUMIN 3.3 g/dL (3.4-5.0); ALKALINE PHOSPHATASE 79 U/L (46-116); ASPARTATE AMINOTRANSFERASE 16 U/L (15-37); BILIRUBIN,TOTAL 0.4 mg/dL (0.1-1.0); CREATINE KINASE, TOTAL ONLY 75 U/L (39-308); TOTAL PROTEIN, SERUM 8.3 g/dL (6.4-8.2)
[2018-10-28 18:31] LABS: LACTIC ACID 1.3 mmol/L (0.4-2.0)
[2018-10-28 18:42] LABS: B-TYPE NATRIURETIC PEPTIDE < 5 pg/mL (0-100)
[2018-10-28] MEDS ORDERED: ACETAMINOPHEN 500 MG TABLET PO ONE (19:00)
[2018-10-28] MEDS ORDERED: SODIUM CHLORIDE 0.9% 1,000 ML IV ONE (19:00)
[2018-10-28] MEDS ORDERED: CefTRIAXone 1 GM/DEXTROSE 50 ML IV ONE (19:00)
[2018-10-28] MEDS ORDERED: AZITHROMYCIN 500 MG/NS 250 ML IV ONE (19:00)
[2018-10-28] MEDS ORDERED: KETOROLAC TROMETHAMINE 30 MG/ML VIAL IVP ONE (19:00)
[2018-10-28 21:29] LABS: APPEARANCE,URINE CLEAR (CLEAR); GLUCOSE, URINE (UA) NEGATIVE (NEGATIVE); KETONES,URINE TRACE mg/dL (NEGATIVE); LEUKOCYTE ESTERASE ,URINE TRACE (NEGATIVE); NITRATE,URINE NEGATIVE (NEGATIVE); OCCULT BLOOD,URINE NEGATIVE (NEGATIVE); PH,URINE 6.5 (5.0-8.0); PROTEIN,URINE TRACE (NEGATIVE)
[2018-10-28 21:33] LABS: BILIRUBIN,URINE PRELIM. POSITIVE (NEGATIVE)
[2018-10-28 21:41] LABS: BACTERIA,URINE Rare /HPF (None Seen); RBC,URINE 0-2 /HPF (0-2); SQUAMOUS EPITHELIAL CELL,UR Rare /LPF (None Seen)
[2018-10-28 22:56] VITALS: BP 108/70
== END 2018-10-28 23:44 | disposition home or self-care (01) ==
LOC: EMS 16:44
DX: J18.9 Pneumonia, unspecified organism (principal); F11.90 Opioid use, unspecified, uncomplicated; F12.90 Cannabis use, unspecified, uncomplicated; F15.90 Other stimulant use, unspecified, uncomplicated; F17.210 Nicotine dependence, cigarettes, uncomplicated; Z79.899 Other long term (current) drug therapy
CPT/HCPCS: 36415; 71045; 80053; 81001; 82550; 83605; 83880; 84484; 85025; 85610; 85730; 87040; 87804; 93005; 96365; 96367; 96375; 99285; J0456; J0696; J1885; J7030